=== PATIENT | female | born 1975 | race Hispanic/Latino ===

== ENCOUNTER 2019-07-28 12:02 | Emergency (ER) | payer BC ==
[~2019-07-28] VITALS: Ht 162.6 cm; Wt 49.9 kg
[~2019-07-28 12:02] MED LIST: ADVIL200 M1; TYLENOL EXTRA500 MG
--- OUTSIDE RECORDS SUMMARY | 2019-07-28 12:05 | XMS REPORT ---
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 Allergies, Adverse Reactions, Alerts Allergy Name Allergy Type Status Severity Reaction(s) Onset Date Inactive Date Treating Clinician Comments No Known Allergies DA Active U 2014-06-29 00:00:00 Medications This patient has no known medications. Results Test Description Test Time Test Comments Text Results Atomic Results Result Comments HCG BLOOD 2019-04-01 01:56:00 HCG BLOOD (test code=HCG) < 2.39 IU/L HCG in non- individuals < 5.0 IU/L (mIU/mL)HCG results greater than or equal to 25 IU/L are consideredPositive. Detection of very low levels of HCG does not excludepregnancy. Repeat testing after 48 hours is recommended. Gestational Age:1-10 weeks 44.71-256,740 IU/L(mIU/mL)11-15 weeks 11,556-256,380 IU/L(mIU/mL)16-22 weeks 7,480.8-111,954 IU/L(mIU/mL)23-40 weeks 1,531.1-101,556 IU/L(mIU/mL) This assay should not be used to diagnose any conditionunrelated to . - DUP AB/PEL/SC/FNU0045-06-07 01:55:00 [place]: St: REG Name: BIGG JACINTO Formerly [facility] : [birth year] Age/S: 43/F [address] Unit #: [id number] Loc: [place] [address] Phys: Belinda Boswell NP Acct: [id number] Dis Date: Status: REG ER PHONE #: [phone] Exam Date: 04/01/2019 0133 FAX #: [phone] Reason: SEE REASON ON US PREG 1ST TRMTR EXAMS: CPT CODE: [id number] DUP AB/PEL/SC/LTD 93413 DICTATION LOCATION: 8 HISTORY: Female, 43 years of age with pelvic pain and bleeding during 1st trimester . 8 weeks 5 days by dates. EXAM: TRANSAB DOMINAL AND TRANSVAGINAL PELVIC ULTRASOUNDS COMPARISON: None relev ant TECHNIQUE: Transabdominal and endovaginal scans with color and pulse wave Doppler interrogation were performed. FINDINGS: UTERUS: Normal size measuring 8.8 x 3.6 x 3.9 cm. No myometrial m asses are seen. Endometrium: 5.0 mm AP dimension. Endometrium is normal thickness and echogenicity. No intrauterine gestational sac or fetus is se en. RIGHT OVARY: 2.3 x 1.5 x 1.9 cm No discrete right ovari an mass. Ovarian blood flow documented with Doppler. LEFT OV THOMPSON: 2.0 x 1.6 x 2.6 cm No discrete left ovarian mass. Ovarian bloo d flow documented with Doppler. OTHER: No complex adnexal mass. N o free fluid in cul-de-sac. IMPRESSION: 1. No intrauter ine . No evidence for ectopic . Complete susp ected. Correlate with serial beta hCG levels. 2. Uterus and ovaries are normal. at 0155 Reported and signed by: Naomi Melara MD CC: Technologist: Tana Puga Date/Time/By: 04/01/2019 (0155) : By: Kavon PAGE 1 Signed Report [place]: [facility]: REG Name: DAVIDBIGG Formerly [facility] : 1975 Age/S: 43/F [address] Unit #: [id number] Loc: [place] [address] Phys: Belinda Boswell cct: [id number] Dis Date: Status: REG ER PHONE #: [phone] Exam Date: 04/01/2019 0133 FAX #: [phone] Reason: SEE REASON ON US PREG 1ST TRMTR EXAMS: CPT CODE: 0 [id number] DUP AB/PEL/SC/LTD 97414 < Continued> Orig Print D/T: S: 04/01/2019 (0158) PAGE 2 Signed Report - US PREG OR [id number] 01:55:00 [place]: [facility]: REG Name: Belinda WATKINSBIGG Formerly [facility] : [birth year] Age/S: 43/F [address] Unit #: [id number] Loc: [place] [address] Phys: Belinda Boswell NP Acct: [id number] Dis Date: Status: REG ER PHONE #: [phone] Exam Date: 04/01/2019 0133 FAX #: [phone] Reason: SEE REASON ON US PREG 1ST TRMTR EXAMS: CPT CODE: [id number] US PREG UT TRANSVAGINAL 73680 DICTATION LOCATION: H48 HISTORY: Female, 43 years of age with pelvic pain and bleeding during 1st trimester . 8 weeks 5 days by dates. EXAM: TRANSAB DOMINAL AND TRANSVAGINAL PELVIC ULTRASOUNDS COMPARISON: None relev ant TECHNIQUE: Transabdominal and endovaginal scans with color and pulse wave Doppler interrogation were performed. FINDINGS: UTERUS: Normal size measuring 8.8 x 3.6 x 3.9 cm. No myometrial m asses are seen. Endometrium: 5.0 mm AP dimension. Endometrium is normal thickness and echogenicity. No intrauterine gestational sac or fetus is se en. RIGHT OVARY: 2.3 x 1.5 x 1.9 cm No discrete right ovari an mass. Ovarian blood flow documented with Doppler. LEFT OV THOMPSON: 2.0 x 1.6 x 2.6 cm No discrete left ovarian mass. Ovarian bloo d flow documented with Doppler. OTHER: No complex adnexal mass. N o free fluid in cul-de-sac. IMPRESSION: 1. No intrauter ine . No evidence for ectopic . Complete susp ected. Correlate with serial beta hCG levels. 2. Uterus and ovaries are normal. at 0155 Reported and signed by: Naomi Melara MD CC: Technologist: Tana Puga; S#:[id number]-D Trnscrd Date/Time/By: 04/01/2019 (0155) : By: RoyceCLW PAGE 1 Signed Report [place]: St: REG Name: BIGG HERNANDEZ Formerly [facility] : 1975 Age/S: 43/F [address] Unit #: [id number] Loc: [place] [address] Phys: Belinda Boswell cct: [id number] Dis Date: Status: REG ER PHONE #: [phone] Exam Date: 04/01/2019 013 FAX #: [phone] Reason: SEE REASON ON US PREG 1ST TRMTR EXAMS: CPT CODE: 0 [id number] US PREG UT TRANSVAGINAL 74697 < Continued> Orig Print D/T: S: 04/01/2019 (0158) PAGE 2 Signed Report - US PREG 1ST [id number] 01:55:00 [place]: St: REG Name: BIGG JACINTO Formerly [facility] : [birth year] 72 Age/S: 43/F [address] Unit #: [id number] Loc: [place] [address] 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 8 weeks 5 days by dates. EXAM: TRANSAB DOMINAL AND TRANSVAGINAL PELVIC ULTRASOUNDS COMPARISON: None relev ant TECHNIQUE: Transabdominal and endovaginal scans with color and pulse wave Doppler interrogation were performed. FINDINGS: UTERUS: Normal size measuring 8.8 x 3.6 x 3.9 cm. No myometrial m asses are seen. Endometrium: 5.0 mm AP dimension. Endometrium is normal thickness and echogenicity. No intrauterine gestational sac or fetus is se en. RIGHT OVARY: 2.3 x 1.5 x 1.9 cm No discrete right ovari an mass. Ovarian blood flow documented with Doppler. LEFT OV THOMPSON: 2.0 x 1.6 x 2.6 cm No discrete left ovarian mass. Ovarian bloo d flow documented with Doppler. OTHER: No complex adnexal mass. N o free fluid in cul-de-sac. IMPRESSION: 1. No intrauter ine . No evidence for ectopic . Complete susp ected. Correlate with serial beta hCG levels. 2. Uterus and ovaries are normal. at 0151 Reported and signed by: Naomi Melara MD CC: Technologist: Tana Puga Date/Time/By: 04/01/2019 (0155) : By: RoyceCLW PAGE 1 Signed Report [place]: St: REG Name: BIGG HERNANDEZ Formerly [facility] : 1975 Age/S: 43/F [address] Unit #: [id number] Loc: [place] [address] Phys: Belinda Boswell cct: [id number] Dis Date: Status: REG ER PHONE #: [phone] Exam Date: 04/01/2019 0133 FAX #: [phone] Reason: PELVIC PAIN EXAMS: CPT CODE: 0 [id number] US PREG 1ST TRIMTR 75662 < Continued> Orig Print D/T: S: 04/01/2019 (0158) PAGE 2 Signed Report BASIC METABOLIC [id number] 01:44:00* Test Item Value Reference Range Comments SODIUM (test code=NA) 139 mmol/L 137-145 POTASSIUM (test code=K) 3.4 mmol/L 3.4-5.0 CHLORIDE (test code=CL) 100 mmol/L 98-107 CARBON DIOXIDE (test code=CO2) 28 mmol/L 22-30 GLUCOSE (test code=GLU) 103 mg/dL 74-106 BLOOD UREA NITROGEN (test code=BUN) 12 mg/dL 7-17 GLOMERULAR FILTRATION RATE (test code=GFR) 115 >60 The estimated glomerular filtration rate is computed usingpatient race, age (>18), sex, and serum creatinine. If anyof the needed data elements are missing the Laboratory cannot compute an estimation of the glomerular filtration rate. CREATININE (test code=CREAT) 0.6 mg/dL 0.5-1.0 CALCIUM (test code=CA) 8.2 mg/dL 8.4-10.2 LIVER FUNCTION [id number] 01:44:00* Test Item Value Reference Range Comments TOTAL PROTEIN (test code=PROT) 7.1 g/dL 6.3-8.2 ALBUMIN (test code=ALB) 4.1 g/dL 3.5-5.0 BILIRUBIN TOTAL (test code=BILT) 0.2 mg/dL 0.2-1.3 BILIRUBIN CONJUGATED (test code=BILCON) 0 mg/dL 0-0.3 ~~~~~~~~~~~~~~~~~~~~~~~~~~~~~~~~~~~~~~~~~~~~~~~~~~~~~~~~~~~~CONJUGATED BILIRUBIN IS THE REPLACEMENT ASSAY FOR DIRECTBILIRUBIN.~~~~~~~~~~~~~~~~~~~~~~~~~~~~~~~~~~~~~~~~~~~~~~~~~~~~~~~~~~~~ BILIRUBIN UNCONJUGATED (test code=BILUNC) 0.1 mg/dL 0-1.1 SGOT/AST (test code=AST) 45 U/L 15-46 SGPT/ALT (test code=ALT) 34 U/L 13-69 ALKALINE PHOSPHATASE (test code=ALKP) 108 U/L 38-126 CBC W/AUTO [id number] 01:06:00* Test Item Value Reference Range Comments WHITE BLOOD CELL (test code=WBC) 7.5 x10 3/uL 5.0-12.0 RED BLOOD CELL (test code=RBC) 4.92 x10 6/uL 4.20-5.40 HEMOGLOBIN (test code=HGB) 14.2 g/dL 12.0-16.0 HEMATOCRIT (test code=HCT) 44.0 % 36.0-46.0 MEAN CELL VOLUME (test code=MCV) 89 fL 81-99 MEAN CELL HGB (test code=MCH) 28.9 pg 27-31 MEAN CELL HGB CONCENTRATION (test code=MCHC) 32.3 g/dL 33-37 RED CELL DISTRIBUTION WIDTH (test code=RDW) 13.3 % 11.5-15.5 PLATELET COUNT (test code=PLT) 305 x10 3/uL 130-400 MEAN PLATELET VOLUME (test code=MPV) 9.9 fL 9.4-16.4 NEUTROPHIL % (test code=NT%) 55.7 % 43-65 IMMATURE GRANULOCYTE % (test code=IG%) 0.5 % 0.0-2.0 LYMPHOCYTE % (test code=LY%) 33.0 % 20.5-45.5 MONOCYTE % (test code=MO%) 7.2 % 5.5-11.7 EOSINOPHIL % (test code=EO%) 2.7 % 0.9-2.9 BASOPHIL % (test code=BA%) 0.9 % 0.2-1.0 NUCLEATED RBC % (test code=NRBC%) 0.0 % 0-1.0 NEUTROPHIL # (test code=NT#) 4.18 x10 3/uL 2.2-4.8 IMMATURE GRANULOCYTE # (test code=IG#) 0.04 x10 3/uL 0-0.03 LYMPHOCYTE # (test code=LY#) 2.48 x10 3/uL 1.3-2.9 MONOCYTE # (test code=MO#) 0.54 x10 3/uL 0.3-0.8 EOSINOPHIL # (test code=EO#) 0.20 x10 3/uL 0.0-0.2 BASOPHIL # (test code=BA#) 0.07 x10 3/uL 0.0-0.1
== END 2019-07-28 12:58 | disposition home or self-care (01) ==
LOC: FSED 12:02
DX: R50.9 Fever, unspecified (principal); R05 Cough; J20.9 Acute bronchitis, unspecified
CPT/HCPCS: 83518; 87400; 99283

== ENCOUNTER 2019-12-14 00:25 | Emergency (ER) | payer SELFPAY ==
[~2019-12-14] VITALS: Ht 162.6 cm; Wt 58.5 kg
[2019-12-14 01:04] VITALS: BP 134/88
== END 2019-12-14 01:10 | disposition home or self-care (01) ==
LOC: ER 00:25
DX: N76.0 Acute vaginitis (principal)
CPT/HCPCS: 99283

== ENCOUNTER 2020-02-19 23:16 | Emergency (ER) | payer SELFPAY ==
[~2020-02-19] VITALS: Ht 162.6 cm; Wt 58.5 kg
[2020-02-19] MEDS ORDERED: ASPIRIN 81 MG CHEW TAB PO ONE (23:30)
--- NOTE | 2020-02-19 23:42 | Emergency Department Note ---
History of Present Illnes History of Present Illness Chief Complaint: Chest Pain History of Present Illness This is a 44 year old female presents to the ED for nonradiating epigas tric tightness. Denies SOB. States that although she drinks daily , she abruptly ceased alcohol this AM. Smalltalk Developer Required: No Onset (how long ago): day(s) (1) Radiation: non-radiation Severity: moderate Duration (how long): day(s) (1) Timing of current episode: constant Progression: unchanged Chronicity: new Context: recent illness, recent surgery, recent immobilization, recent travel, trauma/injury, new medications, hx of DVT/PE, non-compliance w/ medications, other Relieving factors: none Exacerbating factors: none Associated symptoms: chest pain Treatments prior to arrival: none Past Medical/Family History Physician Review I have reviewed the patient's past medical and family history. Any updates have been documented here. Past Medical History Recent Fever: No Clinical Suspicion of Infectio: No New/Unexplained Change in Ment: No Past Medical History: None Past Surgical History: Other Surgery: Social History Smoking Cessation: Current every day smoker Counseling Performed: Yes Alcohol Use: Daily Any Illegal Drug Use: Yes (amphetamine) Other Last Tetanus: UNKNOWN Review of Systems Review of Systems Constitutional: no symptoms EENTM: no symptoms Cardiovascular: chest pain Respiratory: no symptoms Gastrointestinal: no symptoms Genitourinary: no symptoms Musculoskeletal: no symptoms Neurological: no symptoms Psychological: no symptoms Endocrine: no symptoms Hematological/Lymphatic: no symptoms Review of other systems All other systems reviewed and negative. Physical Exam Related Data Allergies: Coded Allergies: No Known Allergies (Unverified , 11/03/12) Triage Vital Signs Vital Signs Date Time Temp Pulse Resp B/P (MAP) Pulse Ox O2 Delivery O2 Flow Rate FiO2 02/19/20 23:23 98.9 87 17 168/97 99 Vital signs reviewed: Yes Physical Exam CONSTITUTIONAL Constitutional: well-developed, well-nourished HENT HENT: normocephalic, atraumatic, oropharynx clear/moist, nose normal HENT L/R: left ext ear normal, right ext ear normal EYES Eyes: PERRL, conjunctivae normal NECK Neck: ROM normal PULMONARY Pulmonary: effort normal, breath sounds normal CARDIOVASCULAR Cardiovascular: regular rhythm, heart sounds normal, capillary refill normal, normal rate GASTROINTESTINAL Abdominal: soft, nontender, bowel sounds normal GENITOURINARY Genitourinary: exam deferred SKIN Skin: warm, dry MUSCULOSKELETAL Musculoskeletal: ROM normal NEUROLOGICAL Neurological: alert, oriented x 3, no gross motor or sensory deficits PSYCHOLOGICAL Psychological: mood/affect normal, judgement normal Results Laboratory Laboratory Laboratory Tests Test 02/19/20 23:21 White Blood Count 6.47 x10e3/uL (4.8-10.8) Red Blood Count 4.41 x10e6/uL (3.6-5.1) Hemoglobin 13.4 g/dL (12.0-16.0) Hematocrit 41.0 % (34.2-44.1) Mean Corpuscular Volume 93.0 fL (81-99) Mean Corpuscular Hemoglobin 30.4 pg (28-32) Mean Corpuscular Hemoglobin Concent 32.7 g/dL (31-35) Red Cell Distribution Width 12.8 % (11.7-14.4) Platelet Count 306 x10e3/uL (140-360) Neutrophils (%) (Auto) 62.7 % (38.7-80.0) Lymphocytes (%) (Auto) 25.7 % (18.0-39.1) Monocytes (%) (Auto) 6.5 % (4.4-11.3) Eosinophils (%) (Auto) 3.2 % (0.0-6.0) Basophils (%) (Auto) 1.1 % (0.0-1.0) Neutrophils # (Auto) 4.1 (2.1-6.9) Lymphocytes # (Auto) 1.7 (1.0-3.2) Monocytes # (Auto) 0.4 (0.2-0.8) Eosinophils # (Auto) 0.2 (0.0-0.4) Basophils # (Auto) 0.1 (0.0-0.1) Absolute Immature Granulocyte (auto 0.05 x10e3/uL (0-0.1) D-Dimer Quantitative (PE/DVT) 0.50 ug/mLFEU (0.00-0.45) Urine Color Yellow (YELLOW) Urine Clarity Clear (CLEAR) Urine pH 7.5 (5 - 7) Urine Specific [place] 1.020 (1.010-1.025) Urine Protein Negative (NEGATIVE) Urine Glucose (UA) Negative (NEGATIVE) Urine Ketones Negative (NEGATIVE) Urine Blood 1+ (NEGATIVE) Urine Nitrite Negative (NEGATIVE) Urine Bilirubin Negative (NEGATIVE) Urine Urobilinogen 0.2 mg/dL (0.2 - 1) Urine Leukocyte Esterase Negative (NEGATIVE) Urine RBC 0-5 /HPF (0-5) Urine WBC 6-10 /HPF (0-5) Urine Epithelial Cells Few /LPF (NONE) Urine Bacteria Few /HPF (NONE) Urine Test Negative (NEGATIVE) Sodium Level 138 mmol/L (136-145) Potassium Level 3.5 mmol/L (3.5-5.1) Chloride Level 103 mmol/L (98-107) Carbon Dioxide Level 24 mmol/L (22-29) Anion Gap 14.5 mmol/L (8-16) Blood Urea Nitrogen 7 mg/dL (7-26) Creatinine 0.68 mg/dL (0.57-1.11) Estimat Glomerular Filtration Rate > 60 ML/MIN (60-) BUN/Creatinine Ratio 10 (6-25) Glucose Level 89 mg/dL (74-118) Calcium Level 8.9 mg/dL (8.4-10.2) Total Bilirubin 0.3 mg/dL (0.2-1.2) Aspartate Amino Transf (AST/SGOT) 101 IU/L (5-34) Alanine Aminotransferase (ALT/SGPT) 107 IU/L (0-55) Alkaline Phosphatase 107 IU/L (40-150) Creatine Kinase 95 IU/L (29-168) Creatine Kinase MB 1.20 ng/mL (0-5.0) Troponin I < 0.001 ng/mL (0-0.300) B-Type Natriuretic Peptide 42.5 pg/mL (0-100) Total Protein 8.1 g/dL (6.5-8.1) Albumin 3.8 g/dL (3.5-5.0) Globulin 4.3 g/dL (2.3-3.5) Albumin/Globulin Ratio 0.9 (0.8-2.0) Urine Opiates Screen Negative (NEGATIVE) Urine Methadone Screen Negative (NEGATIVE) Urine Barbiturates Screen Negative (NEGATIVE) Urine Phencyclidine Screen Negative (NEGATIVE) Urine Amphetamines Screen Negative (NEGATIVE) Urine Methamphetamines Screen Positive (NEGATIVE) Urine Benzodiazepines Screen Negative (NEGATIVE) Urine Cocaine Screen Negative (NEGATIVE) Urine Cannabinoids Screen Negative (NEGATIVE) Lab results reviewed: Yes Imaging Imaging results reviewed: Yes Impressions [facility] [address] [address] Patient Name: BIGG HERNANDEZ MR #: [id number] : 1975 Age/Sex: 44/F Req #: [id number] Adm Physician: Ordered by: MICHAEL OVERTON DO Report #: [id number] Location: ER Room/Bed: Procedure: [id number] CT/CT CHEST W Exam Date: 02/20/20 Exam Time: 0130 REPORT STATUS: Signed EXAM: CT Chest WITH contrast- Pulmonary Embolism Protocol INDICATION: Elevated D dimer. COMPARISON: Chest radiograph 02-20-2020. TECHNIQUE: Chest was scanned utilizing a multidetector helical scanner from the lung apex through the level of the diaphragm after administration of IV contrast. Thin section reconstructions were obtained with special concentration on the pulmonary arteries. Coronal and sagittal reformations were obtained. Pulmonary embolism protocol was performed. IV CONTRAST: 100 cc of Isovue 370 RADIATION DOSE: Total DLP: 428 mGy*cm Dose modulation, iterative reconstruction, and/or weight based adjustment of the mA/kV was utilized to reduce the radiation dose to as low as reasonably achievable. COMPLICATIONS: None FINDINGS: LINES/ TUBES: None. PULMONARY ARTERIES: No filling defect is identified within the pulmonary arteries to the segmental level. The subsegmental pulmonary arteries are not well opacified. Main pulmonary artery measures 2.1 cm in diameter. LUNGS AND AIRWAYS: The central airways are patent. No evidence of pneumonia or pulmonary edema. Minimal dependent atelectasis. Biapical pleural-parenchymal opacity, compatible with sequela of remote granulomatous disease. There is a 4 mm solid nodule in the lingula on series 3, image 75. There is a 6 mm subpleural nodular opacity in the right upper lobe on series 3, image 18. PLEURA: The pleural spaces are clear. HEART AND MEDIASTINUM: The thyroid gland is normal. No mediastinal, hilar or axillary lymphadenopathy. The heart is normal in size.. There is no pericardial effusion. . UPPER ABDOMEN: Limited contrast-enhanced views of the upper abdomen. Diffuse hepatic steatosis. BONES: The visualized bony thorax is within normal limits. SOFT TISSUES: Unremarkable. IMPRESSION: No evidence of pulmonary embolism to the level of the segmental pulmonary arteries. Biapical pleural-parenchymal opacity, compatible with remote granulomatous disease. A 6 mm subpleural nodular opacity in the right upper lobe likely reflects sequela of remote granulomatous disease. A follow-up chest CT is suggested in 6-12 months. Signed by: Dr. Ramez García MD on 02/20/2020 2:20 AM Dictated By: RAMEZ GARCÍA MD 9 Transcribed By: RASHMI on 02/20/20219 COPY TO: MICHAEL OVERTON DO~ [address] [place] [address] Patient Name: BIGG HERNANDEZ MR #: [id number] : 1975 Age/Sex: 44/F Req #: [id number] Adm Physician: Ordered by: MICHAEL OVERTON DO Report #: [id number] Location: ER Room/Bed: Procedure: [id number] DX/CHEST 2 VIEWS Exam Date: 02/20/20 Exam Time: 9 REPORT STATUS: Signed EXAMINATION: CHEST 2 VIEWS INDICATION: Heart palpitations. COMPARISON: None FINDINGS: TUBES and LINES: None. LUNGS: Lungs are well inflated. There is no evidence of pneumonia or pulmonary edema. Mild biapical pleural-parenchymal opacity, compatible with remote granulomatous disease. PLEURA: No pleural effusion or pneumothorax. HEART AND MEDIASTINUM: The cardiomediastinal silhouette is unremarkable. BONES AND SOFT TISSUES: No acute osseous lesion. Soft tissues are unremarkable. UPPER ABDOMEN: No free air under the diaphragm. IMPRESSION: No acute thoracic abnormality. Signed by: Dr. Ramez García MD on 02/20/2020 12:45 AM Dictated By: RAMEZ GRACÍA MD Transcribed By: RASHMI on 02/20/2044 COPY TO: MICHAEL OVERTON DO~ Procedures 12 Lead ECG Interpretation Smalltalk Developer: Interpreted by ED physician Date: February 19, 2020 Time: 23:42 Prior FLY FISHING GUIDE tracings: reviewed Rhythm: sinus rhythm Rate: normal BPM: 83 QRS axis: normal ST segments normal: Yes T wave depression: V1, V2 Clinical Impression: normal ECG Assessment & Plan Assessment & Plan Final Impression: (1) Chest pain (2) Alcohol abuse (3) Amphetamine abuse Assessment & Plan patient discharged to home. Rx Serax for alcohol and methamphetamine withdrawal. Patient to f/u with Dr Luann Chahal as an outpatient. Depart Disposition: HOME, SELF-shelter Meds No Active Prescriptions or Reported Meds Medications in the ED Aspirin 81 mg PRN ONCE PO ; Start 02/19/20 at 23:30; Stop 02/19/20 at 23:31; Status DC MICHAEL OVERTON DO February 19, 2020 23:24
[2020-02-20 00:05] LABS: BASOPHILS # (AUTO) 0.1 (0.0-0.1); BASOPHILS % 1.1 % (0.0-1.0); EOSINOPHILS # (AUTO) 0.2 (0.0-0.4); EOSINOPHILS % 3.2 % (0.0-6.0); HEMOGLOBIN 13.4 g/dL (12.0-16.0); LYMPHOCYTES # (AUTO) 1.7 (1.0-3.2); LYMPHOCYTES % 25.7 % (18.0-39.1); MEAN CORPUSCULAR HEMOGLOBIN 30.4 pg (28-32); MEAN CORPUSCULAR HGB CONC 32.7 g/dL (31-35); MONOCYTES # (AUTO) 0.4 (0.2-0.8); MONOCYTES % 6.5 % (4.4-11.3); NEUTROPHILS # (AUTO) 4.1 (2.1-6.9); NEUTROPHILS % 62.7 % (38.7-80.0); PLATELET COUNT 306 x10e3/uL (140-360); RED BLOOD COUNT 4.41 x10e6/uL (3.6-5.1); RED CELL DISTRIBUTION WIDTH 12.8 % (11.7-14.4)
[2020-02-20 00:20] LABS: AMPHETAMINES SCREEN,URINE NEGATIVE (NEGATIVE); BENZODIAZEPINES SCREEN,URINE NEGATIVE (NEGATIVE); PHENCYCLIDINE SCREEN,URINE NEGATIVE (NEGATIVE)
[2020-02-20 00:22] LABS: ALANINE AMINOTRANSFERASE 107 IU/L (0-55); ALBUMIN 3.8 g/dL (3.5-5.0); ALBUMIN/GLOBULIN RATIO 0.9 (0.8-2.0); ALKALINE PHOSPHATASE 107 IU/L (40-150); ANION GAP 14.5 mmol/L (8-16); BLOOD UREA NITROGEN 7 mg/dL (7-26); BUN/CREATININE RATIO 10 (6-25); CALCIUM 8.9 mg/dL (8.4-10.2); CARBON DIOXIDE 24 mmol/L (22-29); CHLORIDE 103 mmol/L (98-107); CREATINE KINASE 95 IU/L (29-168); CREATININE, SERUM 0.68 mg/dL (0.57-1.11); EST GLOMERULAR FILTRATION RATE > 60 ML/MIN (60-); POTASSIUM 3.5 mmol/L (3.5-5.1); SODIUM 138 mmol/L (136-145)
[2020-02-20 00:29] LABS: CLARITY,URINE CLEAR (CLEAR); COLOR,URINE YELLOW (YELLOW)
[2020-02-20 00:30] LABS: BILIRUBIN,URINE NEGATIVE (NEGATIVE); KETONES,URINE NEGATIVE (NEGATIVE); LEUKOCYTE ESTERASE ,URINE NEGATIVE (NEGATIVE); NITRITE,URINE NEGATIVE (NEGATIVE); PREGNANCY TEST, URINE NEGATIVE (NEGATIVE); PROTEIN,URINE DIPSTICK NEGATIVE (NEGATIVE); URINE UROBILINOGEN 0.2 mg/dL (0.2 - 1)
[2020-02-20 00:38] LABS: GLUCOSE 89 mg/dL (74-118)
--- NOTE | 2020-02-20 00:48 | Diagnostic Imaging Report ---
EXAMINATION: CHEST 2 VIEWS INDICATION: Heart palpitations. COMPARISON: None FINDINGS: TUBES and LINES: None. LUNGS: Lungs are well inflated. There is no evidence of pneumonia or pulmonary edema. Mild biapical pleural-parenchymal opacity, compatible with remote granulomatous disease. PLEURA: No pleural effusion or pneumothorax. HEART AND MEDIASTINUM: The cardiomediastinal silhouette is unremarkable. BONES AND SOFT TISSUES: No acute osseous lesion. Soft tissues are unremarkable. UPPER ABDOMEN: No free air under the diaphragm. IMPRESSION: No acute thoracic abnormality. Signed by: Dr. Lizabeth Ramirez MD on 02/20/2020 12:45 AM
[2020-02-20 01:02] LABS: BACTERIA,URINE FEW /HPF; EPITHELIAL CELLS,URINE FEW /LPF; RBC,URINE 0-5 /HPF (0-5)
--- NOTE | 2020-02-20 02:23 | Diagnostic Imaging Report ---
EXAM: CT Chest WITH contrast- Pulmonary Embolism Protocol INDICATION: Elevated D dimer. COMPARISON: Chest radiograph 02-20-2020. TECHNIQUE: Chest was scanned utilizing a multidetector helical scanner from the lung apex through the level of the diaphragm after administration of IV contrast. Thin section reconstructions were obtained with special concentration on the pulmonary arteries. Coronal and sagittal reformations were obtained. Pulmonary embolism protocol was performed. IV CONTRAST: 100 cc of Isovue 370 RADIATION DOSE: Total DLP: 428 mGy*cm Dose modulation, iterative reconstruction, and/or weight based adjustment of the mA/kV was utilized to reduce the radiation dose to as low as reasonably achievable. COMPLICATIONS: None FINDINGS: LINES/ TUBES: None. PULMONARY ARTERIES: No filling defect is identified within the pulmonary arteries to the segmental level. The subsegmental pulmonary arteries are not well opacified. Main pulmonary artery measures 2.1 cm in diameter. LUNGS AND AIRWAYS: The central airways are patent. No evidence of pneumonia or pulmonary edema. Minimal dependent atelectasis. Biapical pleural-parenchymal opacity, compatible with sequela of remote granulomatous disease. There is a 4 mm solid nodule in the lingula on series 3, image 75. There is a 6 mm subpleural nodular opacity in the right upper lobe on series 3, image 18. PLEURA: The pleural spaces are clear. HEART AND MEDIASTINUM: The thyroid gland is normal. No mediastinal, hilar or axillary lymphadenopathy. The heart is normal in size.. There is no pericardial effusion. . UPPER ABDOMEN: Limited contrast-enhanced views of the upper abdomen. Diffuse hepatic steatosis. BONES: The visualized bony thorax is within normal limits. SOFT TISSUES: Unremarkable. IMPRESSION: No evidence of pulmonary embolism to the level of the segmental pulmonary arteries. Biapical pleural-parenchymal opacity, compatible with remote granulomatous disease. A 6 mm subpleural nodular opacity in the right upper lobe likely reflects sequela of remote granulomatous disease. A follow-up chest CT is suggested in 6-12 months. Signed by: Dr. Lizabeth Ramirez MD on 02/20/2020 2:20 AM
[2020-02-20] MEDS ORDERED: ONDANSETRON HCL 4 MG ORAL DISINTEGRATING TAB PO STA (02:59)
[2020-02-20 03:04] VITALS: BP 137/71
[2020-02-20] MEDS ORDERED: ONDANSETRON HCL 4 MG ORAL DISINTEGRATING TAB ONE (03:13)
[2020-02-20] MEDS ORDERED: SODIUM CHLORIDE 0.9% 50ML 50 ML ONE (03:51)
[2020-02-20] MEDS ORDERED: IOPAMIDOL 370 MG/ML 200 ML INFUS..BTL INJ ONE (03:52)
--- OUTSIDE RECORDS SUMMARY | 2020-02-20 10:23 | XMS REPORT | Clinical Summary ---
Author Author JAMES 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 Active Problems Not on file Social History Date Tobacco Use Types Packs/Day Years Used Current Every Day Smoker Cigarettes 0.5 20 Tobacco Cessation: Ready to Quit: No; Co unseling Given: Yes Alcohol Use Drinks/Week oz/Week Comments No Sex Assigned at Date Recorded Not on file Industry Job Start Date Occupation Not on file Not on file Not on file Travel End Travel History Travel Start No recent travel history available. Last Filed Vital Signs Not on file Plan of Treatment Not on file Results Not on fileafter 02/18/2019 Insurance Payer Benefit Subscriber ID Type Phone Address Plan / Group MEDICAID - MEDICAID MGD MEDICAID xxxxxxxxx [employer] id CARE COMM Contracted HEALTH CHOICE
--- OUTSIDE RECORDS SUMMARY | 2020-02-20 10:23 | XMS REPORT | Summary of Care ---
Author Organization Unknown Address Unknown Phone Unavailable Encounter HQ Adelar_matias([facility]) [id number] Date(s): 10/17/14 - 10/17/14 [facility] Outpatient Imaging - [address] [address]- [place] Discharge Disposition: Home Physician Attending: Rao Cleary MD Reason for Visit 786.0 - DYSPNEA/RESPIRA Problem List No data available for this section Allergies, Adverse Reactions, Alerts Substance Reaction Severity Status NKDA Active Medications No data available for this section Medications Administered During Your Visit No data available for this section Immunizations No data available for this section
--- OUTSIDE RECORDS SUMMARY | 2020-02-20 10:23 | XMS REPORT | CCD ---
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 Phone Erick Liu CP Allergies, Adverse Reactions, Alerts Substance Reaction Status NKDA Active Medications Medication Instructions Start Date End Date Status predniSONE 20 mg 60 mg, 3 tab, PO, Daily, Take 3 05/24/2013 Ordered oral tablet tablets for 60 mg dose, 15 tab, Substitution Allowed Take 3 tablets for 60 mg dose Benadryl 25 mg, Route: PO, Drug form: CAP, 05/24/201305/24 Completed ONCE, Dosing Weight 45.455, kg, Priority: STAT, Start date: 05/24/13 2:40:00, Stop date: 05/24/13 2:40:00 dexamethasone 8 mg, Route: IM, ONCE, Dosing 05/24/2013 013 Completed Weight 45.455, kg, Priority: STAT, Start date: 05/24/13 2:39:00, Stop date: 05/24/13 2:39:00 Vital Signs Most recent to oldest [Reference Range]: 1 2 Height 162.56 cm (05/24/2013 00:28:00) Temperature Oral [96.4-99.1 DegF] 97.6 DegF (05/24/2013 03:21:00) 98.2 DegF (05/24/2013 00:28:00) Systolic Blood Pressure [90-140 mmHg] 121 mmHg (05/24/2013 03:21:00) 144 mmHg *HI* (05/24/2013 00:28:00) Diastolic Blood Pressure [60-90 mmHg] 84 mmHg (05/24/2013 03:21:00) 84 mmHg (05/24/2013 00:28:00) Respiratory Rate [14-20 BRMIN] 16 BRMIN (05/24/2013 03:21:00) 18 BRMIN (05/24/2013 00:28:00) Peripheral Pulse Rate [60-100 bpm] 80 bpm (05/24/2013 03:21:00) 80 bpm (05/24/2013 00:28:00) Weight 45.455 kg (05/24/2013 00:28:00)
--- OUTSIDE RECORDS SUMMARY | 2020-02-20 10:23 | XMS REPORT | Summary of Care ---
Author Author [facility] Outpatient Imaging - [facility] Organization [facility] Outpatient Imaging - [facility] Address Unknown Phone Unavailable Encounter HQ Encntr_alias(FIN) [id number] Date(s): 09/12/17 - 09/12/17 [facility] Outpatient Imaging - [place] [address] [place] [id number]- [phone] Discharge Disposition: Home or Self Care Attending Physician: Fab Alvarado MD Vital Signs No data available for this section Problem List No data available for this section Allergies, Adverse Reactions, Alerts Substance Reaction Severity Status NKDA Active Medications No data available for this section Results No data available for this section Immunizations No data available for this section Procedures No data available for this section Social History No data available for this section Assessment and Plan No data available for this section
--- OUTSIDE RECORDS SUMMARY | 2020-02-20 10:23 | XMS REPORT | Continuity of Care Document ---
Author Author [employer] Address Unknown Phone Unavailable Care Team Providers Care [place] Agent Name Role Phone [facility] [employer] Unavailable Un available Problems Problem Status Onset Date Classification Date Reported Comments Source M25.542 - PAIN IN JOINTS OF LEFT HAND Active 09/12/2017 [facility] [place] 786.0 - DYSPNEA/RESPIRA Active 10/17/2014 [facility] [place] BEE STING, SOB, DIFFUCULTY SWALLOWING Active 05/23/2013 [facility] Medications Medication Details Route Status Patient Instructions Ordering Provider Order Date Source predniSONE 20 mg oral tablet 6 0 mg, 3 tab, PO, Daily, Take 3 tablets for 60 mg dose, 15 tab, Substitution AllowedTake 3 tablets for 60 mg dose PO Active [facility] 05/03 [facility] Benadryl 25 mg, Route: PO, Dl g form: CAP, ONCE, Dosing Weight 45.455, kg, Priority: STAT, Start date: 05/24/13 2:40:00, Stop date: 05/24/13 2:40:00 PO No Longer Active [facility] 05/24/2013 [facility] dexamethasone 8 mg, Route: IM, ONCE, Dosing Weight 45.455, kg, Priority: STAT, Start date: 05/24/13 2:39:00, Stop date: 05/24/13 2:39:00 IM No Longer Active [facility] 05/24/2013 [facility] Allergies, Adverse Reactions, Alerts No Known Medication Allergies Immunizations No Data Provided for This Section Results No Data Provided for This Section Pathology Reports No Data Provided for This Section Diagnostic Reports Report Value Date Source Hand 3 views DX Exam: Left mccarty d x-ray, 3 views Reason for Exam: - m25.542 pain in joins of left hand Comparison Exam: None Discussion: No fractures or dislocations are seen of the left hand. The joint spaces are preserved. No intraosseous lesions. No radiopaque foreign bodies. Impression: 1. Unremarkable x-ray of the left hand 09/12/2017 [facility] Chest 2 views CHEST RADIOGRAPH Y CLINICAL HISTORY: Shortness of breath. COMPARISON IMAGIN02/10/2012 FINDINGS: Two views of the chest were acquired and submitted for evaluation. No pleural fluid is identified. The contour of the cardiac silhouette is within normal limits. There is no significant pulmonary consolidation or nodularity. Bones are unremarkable. IMPRESSION: No significant abnormality. 10/17/2014 [facility] Consultation Notes No Data Provided for This Section Discharge Summaries No Data Provided for This Section History and Physicals No Data Provided for This Section Vital Signs Vital Sign Value Date Comments Source Systolic (mm Hg) 121 05/24/2013 [facility] Diastolic (mm Hg) 84 05/24/2013 [facility] Heart Rate 80 05/24/2013 [facility] Respitory Rate 16 05/24/2013 [facility] Temperature Oral (F) 97.6 F 05/24/2013 [facility] Temperature Oral (F) 98.2 F 05/24/2013 [facility] Respitory Rate 18 05/24/2013 [facility] Systolic (mm Hg) 144 05/24/2013 [facility] Diastolic (mm Hg) 84 05/24/2013 [facility] Heart Rate 80 05/24/2013 [facility] Weight 45.455 05/24/2013 [facility] Height 162.56 cm 05/24/2013 [facility] Encounters Location Location Details Encounter Type Encounter Number Reason For Visit Attending Provider ADM Date DC Date Status Source Not Sent Em ergency [id number] BEE STING, SOB, D IFFUCULTY SWALLOWING MUKUL ALANIS 05/24/2013 05/24/2013 Active [facility] [place] [facility] [id number] Rao Busch Jr 10/17/2014 10/18/2014 [facility] [place] [facility] [id number] Fab Alvarado 09/12/2017 09/13/2017 [facility] Procedures No Data Provided for This Section Assessment and Plan No Data Provided for This Section Plan of Care No Data Provided for This Section Social History Social History Date Source No data available for this section 09/13/2017 [facility] Family History No Data Provided for This Section Advance Directives No Data Provided for This Section Functional Status No Data Provided for This Section
--- OUTSIDE RECORDS SUMMARY | 2020-02-20 10:24 | XMS REPORT ---
Author Author [facility] t Organization [facility] Address [address] [facility] [place] [address] Phone Unavailable Care Team Providers Care Assistance Specialist Name Role Phone NO, PCP PCP Unavailable MICHAEL OVERTON Attphys Unavailable Jake Alvarado Attphys Mihai Busch Jr Attphys Payers Payer Name Policy Type Policy Number Effective Date Expiration Date S elizabeth [facility] [id number] 2018 00:00:00 [facility] [id number] 2018 00:00:00 [facility] Advance Directives Directive Decision Effective Date Termination Date Comments Sour ce Yes N/A [facility] Problems Condition Name Condition Details Condition Category Status Onset Date Resolution Date Last Treatment Date Treating Clinician Comments Source M25.542 - PAIN IN JOINTS OF LEFT HAND M25.542 - PAIN IN JOINTS OF LEFT HAND Active 09/12/2017 [facility] [place] Diagnosis Active 2017-09-12 00:01:00 2017-09-12 15:04:00 M H [facility] [place] 786.0 - DYSPNEA/RESPIRA 786. 0 - DYSPNEA/RESPIRA Active 10/17/2014 [facility] [place] Diagnosis Active 2014-10-17 00:01:00 2014-11-18 14:09:00 [facility] [place] BEE STING, SOB, DIFFUCULTY SWALLOWING BEE STING, SOB, DIFFUCULTY SWALLOWING Active 05/23/2013 [facility] Diagnosis Ac tive 2013-05-23 17:00:00 2013-05-27 11:07:00 [facility] Chest pain Problem [facility] Amphetamine abuse Problem [facility] Allergies, Adverse Reactions, Alerts Allergy Name Allergy Type Status Severity Reaction(s) Onset Date Inacti ve Date Treating Clinician Comments Source No Known Allergies DA Active U 2014-06-29 00:00:00 [facility] Social History Social Habit Start Date Stop Date Quantity Comments Source Social History 2017-09-13 05:59:00 2017-09-13 05:59:00 [facility] Sex Assigned At 1975 00:00:00 1975 00:00:00 Female [facility] Medications Ordered Medication Name Filled Medication Name Start Date Stop Da te Current Medication? Ordering Clinician Indication Dosage Frequency Signature (SIG) Comments Components Source predniSONE 20 mg oral tablet 2013-05-24 08:23:48 Y es Nila Monet LaHaye 60 mg, 3 tab, PO, Da ariela, Take 3 tablets for 60 mg dose, 15 tab, Substitution AllowedTake 3 tablets for 60 mg dose [facility] Benadryl 2013-05-24 07:40:00 No Nila Monet LaHaye 25 mg, Route: PO, Drug form: CAP, ONCE, Dosing Weight 45.455, kg, Priority: STAT, Start date: 05/24/13 2:40:00, Stop date: 05/24/13 2:40:00 [facility] dexamethasone 2013-05-24 07:39:00 Marion Aguirre ayelvira 8 mg, Route: IM, ONCE, Dosing Weight 45.455, kg, Priority: STAT, Start date: 05/24/13 2:39:00, Stop date: 05/24/13 2:39:00 [facility] Vital Signs Vital Name Observation Time Observation Value Comments Source Body Temperature 2020-02-20 03:04:00 97.6 [degF] [facility] Weight 2020-02-19 23:23:00 129 [lb_av] [facility] BMI (Body Mass Index) 2020-02-19 23:23:00 22.1 kg/m2 [facility] Systolic (mm Hg) 2013-05-24 08:21:00 [facility] Diastolic (mm Hg) 2013-05-24 08:21:00 [facility] Heart Rate 2013-05-24 08:21:00 [facility] Respitory Rate 2013-05-24 08:21:00 [facility]ast Temperature Oral (F) 2013-05-24 08:21:00 97.6 F [facility] Temperature Oral (F) 2013-05-24 05:28:00 98.2 F [facility] Respitory Rate 2013-05-24 05:28:00 [facility]ast Systolic (mm Hg) 2013-05-24 05:28:00 [facility] Diastolic (mm Hg) 2013-05-24 05:28:00 [facility] Heart Rate 2013-05-24 05:28:00 [facility] Weight 2013-05-24 05:28:00 [facility] Height 2013-05-24 05:28:00 162.56 cm [facility] Procedures Procedure Date / Time Performed Performing Clinician [facility] e X-ray of chest, two views 2020-02-20 00:00:00 CH I [facility] Computed tomography of chest with contrast 2020-02-20 00:00:00 [facility] Plan of Care Planned Activity Planned Date Details Comments Source Goal Patient referral [code = 2759621 ] [facility] Instructions Alcohol Withdrawal [facility] Instructions Chest Pain - Noncardiac [facility] Instructions Methamphetamine Abuse [facility] Encounters Start Date/Time End Date/Time Encounter Type Admission Type [facility] Care Department Encounter ID Source 2020-02-19 23:16:00 2020-02-20 03:08:00 Departed Emergency Room 1 TIANMICHAEL [facility] [id number] [facility] 2019-12-14 00:25:00 2019-12-14 01:10:00 Departed Emergency Room [facility] [id number] [facility] Patients [facility] 2019-07-28 12:02:00 2019-07-28 12:58:00 Departed Emergency Room [facility] [id number] [facility] 2017-09-12 20:22:00 2017-09-13 05:59:00 Outpt Diag Services [facility] [place] [id number] [facility] [place] 2017-09-12 14:22:00 2017-09-12 23:59:00 Outpatient Denise Alvarado [facility] [id number] 2014-10-17 20:09:00 2014-10-18 05:59:00 Outpt Diag Services [facility] [place] [id number] [facility] [place] 2014-10-17 14:09:00 2014-10-17 23:59:00 Outpatient Rao Mi [facility] [id number] 2013-05-24 00:10:00 2013-05-24 03:58:00 Emergency [facility] T Not Sent [id number] [place] Results Test Description Test Time Test Comments Results Result Comments Source CT CHEST W 2020-02-20 02:07:00 [place] [address] Patient Name: BIGG HERNANDEZ MR #: [id number] : 1975 Age/Sex: 44/F Req #: [id number] Adm Physician: Ordered by: MICHAEL OVERTON DO Report #: [id number] Location: ER Room/Bed: Procedure: [id number] CT/CT CHEST W Exam Date: 02/20/20 Exam Time: 0130 REPORT STATUS: Signed EXAM: CT Chest WITH contrast- Pulmonary Embolism Protocol INDICATION: Elevated D dimer. COMPARISON: Chest radiograph 02-20-2020. TECHNIQUE: Chest was scanned utilizing a multidetector helical scanner from the lung apex through the level of the diaphragm after administration of IV contrast. Thin section reconstructions were obtained with special concentration on the pulmonary arteries. Coronal and sagittal reformations were obtained. Pulmonary embolism protocol was performed. IV CONTRAST: 100 cc of Isovue 370 RADIATION DOSE: Total DLP: 428 mGy*cm Dose modulation, iterative reconstruction, and/or weight based adjustment of the mA/kV was utilized to reduce the radiation dose to as low as reasonably achievable. COMPLICATIONS: None FINDINGS: LINES/ TUBES: None. PULMONARY ARTERIES: No filling defect is identified within the pulmonary arteries to the segmental level. The subsegmental pulmonary arteries are not well opacified. Main pulmonary artery measures 2.1 cm in diameter. LUNGS AND AIRWAYS: The central airways are patent. No evidence of pneumonia or pulmonary edema. Minimal dependent atelectasis. Biapical pleural-parenchymal opacity, compatible with sequela of remote granulomatous disease. There is a 4 mm solid nodule in the lingula on series 3, image 75. There is a 6 mm subpleural nodular opacity in the right upper lobe on series 3, image 18. PLEURA: The pleural spaces are clear. HEART AND MEDIASTINUM: The thyroid gland is normal. No mediastinal, hilar or axillary lymphadenopathy. The heart is normal in size.. There is no pericardial effusion. . UPPER ABDOMEN: Limited contrast-enhanced views of the upper abdomen. Diffuse hepatic steatosis. BONES: The visualized bony thorax is within normal limits. SOFT TISSUES: Unremarkable. IMPRESSION: No evidence of pulmonary embolism to the level of the segmental pulmonary arteries. Biapical pleural-parenchymal opacity, compatible with remote granulomatous disease. A 6 mm subpleural nodular opacity in the right upper lobe likely reflects sequela of remote granulomatous disease. A follow- up chest CT is suggested in 6-12 months. Signed by: Dr. Ramez García MD on 02/20/2020 2:20 AM Dictated By: RAMEZ GARCÍA MD 9 Transcribed By: RASHMI on 02/20/20219 COPY TO: MICHAEL OVERTON DO CHEST 2 VIEWS 2020-02-20 00:43:00 [place] [address] Patient Name: BIGG HERNANDEZ MR #: [id number] : 1975 Age/Sex: 44/F Req #: [id number] Adm Physician: Ordered by: MICHAEL OVERTON DO Report #: [id number] Location: ER Room/Bed: Procedure: [id number] DX/CHEST 2 VIEWS Exam Date: 02/20/20 Exam Time: 9 REPORT STATUS: Signed EXAMINATION: CHEST 2 VIEWS INDICATION: Heart palpitations. COMPARISON: None FINDINGS: TUBES and LINES: None. LUNGS: Lungs are well inflated. There is no evidence of pneumonia or pulmonary edema. Mild biapical pleural-parenchymal opacity, compatible with remote granulomatous disease. PLEURA: No pleural effusion or pneumothorax. HEART AND MEDIASTINUM: The cardiomediastinal silhouette is unremarkable. BONES AND SOFT TISSUES: No acute osseous lesion. Soft tissues are unremarkable. UPPER ABDOMEN: No free air under the diaphragm. IMPRESSION: No acute thoracic abnormality. Signed by: Dr. Ramez García MD on 02/20/2020 12:45 AM Dictated By: RAMEZ GARCÍA MD Transcribed By: RASHMI on 02/20/2044 COPY TO: MICHAEL OVERTON DO Blood leukocytes automated count (number/volume) 2020-02-19 23:21:00 Test Item White Blood Count (test code = 6690-2) 6.47 [facility] count (number/volume)2020-02-19 23:21:00* Test Item Value Reference Range Interpretation Comments Red Blood Count (test code = 789-8) 4.41 [facility] hemoglobin measurement (moles/volume)2020-02-19 23:21:00* Test Item Value Reference Range Interpretation Comments Hemoglobin (test code = 88711-9) 13.4 [facility] HospitalAutom[facility] blood hematocrit (volume fraction)2020-02-19 23:21:00* Test Item Value Reference Range Interpretation Comments Hematocrit (test code = 4544-3) 41.0 [facility] HospitalAutomated erythrocyte mean corpuscular omlswo7703-08-42 23:21:00* Test Item Value Reference Range Interpretation Comments Mean Corpuscular Volume (test code = 787-2) 93.0 [facility]Autom[facility] erythrocyte mean corpuscular hemoglobin (mass per erythrocyte)2020-02-19 23:21:00* Test Item Value Reference Range Interpretation Comments Mean Corpuscular Hemoglobin (test code = 785-6) 30.4 [facility] HospitalAutom[facility] erythrocyte mean corpuscular hemoglobin concentration measurement (mass/volume)2020-02-19 23:21:00* Test Item Value Reference Range Interpretation Comments Mean Corpuscular Hemoglobin Concent (test code = 786-4) 32.7 [facility] HospitalRDW IkrBl-Qfh3665-09-20 23:21:00* Test Item Value Reference Range Interpretation Comments Red Cell Distribution Width (test code = 59387-3) 12.8 [facility] HospitalAutom[facility] blood platelet count (count/volume)2020-02-19 23:21:00* Test Item Value Reference Range Interpretation Comments Platelet Count (test code = 777-3) 306 [facility] HospitalAutomated blood segmented neutrophil count as percentage of total swjegstbao5922-94-54 23:21:00* Test Item Value Reference Range Interpretation Comments Neutrophils (%) (Auto) (test code = 49287-9) 62.7 [facility] HospitalAutom[facility] blood lymphocyte count as percentage ot total bsghpywqxq5720-91-42 23:21:00* Test Item Value Reference Range Interpretation Comments Lymphocytes (%) (Auto) (test code = 736-9) 25.7 [facility] HospitalAutomated blood monocyte count as percentage of total htghmuzavk8950-69-89 23:21:00* Test Item Value Reference Range Interpretation Comments Monocytes (%) (Auto) (test code = 5905-5) 6.5 [facility] HospitalAutom[facility] blood eosinophil count as percentage of total sxcynemqxt6651-44-43 23:21:00* Test Item Value Reference Range Interpretation Comments Eosinophils (%) (Auto) (test code = 713-8) 3.2 [facility] HospitalAutomated blood basophil count as percentage of total akuspwmgwo2767-37-65 23:21:00* Test Item Value Reference Range Interpretation Comments Basophils (%) (Auto) (test code = 706-2) 1.1 [facility] HospitalFluoroscopic procedure less than one hour pmhybfnr7985-06-78 23:21:00* Test Item Value Reference Range Interpretation Comments IM GRANULOCYTES % (test code = IM GRANULOCYTES %) 0.8 [facility] HospitalAutomated blood neutrophil count 2020-02-19 23:21:00* Test Item Value Reference Range Interpretation Comments Neutrophils # (Auto) (test code = 751-8) 4.1 [facility] HospitalBlood lymphocytes count (number/volume) 2020-02-19 23:21:00* Test Item Value Reference Range Interpretation Comments Lymphocytes # (Auto) (test code = 92790-2) 1.7 [facility]Bl[facility] monocytes automated count (number/volume)2020-02-19 23:21:00* Test Item Value Reference Range Interpretation Comments Monocytes # (Auto) (test code = 742-7) 0.4 [facility] HospitalAutomated blood eosinophil count 2020-02-19 23:21:00* Test Item Value Reference Range Interpretation Comments Eosinophils # (Auto) (test code = 711-2) 0.2 [facility] HospitalAutomated blood basophil count (count/volume)2020-02-19 23:21:00* Test Item Value Reference Range Interpretation Comments Basophils # (Auto) (test code = 704-7) 0.1 [facility] HospitalFluoroscopic procedure less than one hour xdeovrnd5255-85-78 23:21:00* Test Item Value Reference Range Interpretation Comments Absolute Immature Granulocyte (auto (mirna t code = Absolute Immature Granulocyte (auto) 0.05 [facility] HospitalFibrin D-dimer DDU measurement in platelet poor plasma (mass/volume)2020-02-19 23:21:00* Test Item Value Reference Range Interpretation Comments D-Dimer Quantitative (PE/DVT) (test code = 22305-3) 0.50 [facility] HospitalUrine color xstdsuutensqj8795-97-37 23:21:00* Test Item Value Reference Range Interpretation Comments Urine Color (test code = 5778-6) YELLOW [facility] HospitalUrine fcewtan6849-03-70 23:21:00* Test Item Value Reference Range Interpretation Comments Urine Clarity (test code = 48113-8) CLEAR [facility] gravity of Urine by Test strip 2020-02-19 23:21:00* Test Item Value Reference Range Interpretation Comments Urine Specific [place] (test code = 5811-5) 1.020 [facility] HospitalUrine pH measurement by automated test fcsqc5379-06-24 23:21:00* Test Item Value Reference Range Interpretation Comments Urine pH (test code = 88140-9) 7.5 [facility] HospitalU[facility] leukocyte esterase detection by hlwgzcvo7414-21-72 23:21:00* Test Item Value Reference Range Interpretation Comments Urine Leukocyte Esterase (test code = 5799-2) NEGATIVE [facility] HospitalUrine nitrite cepxyydqw5197-00-31 23:21:00* Test Item Value Reference Range Interpretation Comments Urine Nitrite (test code = 59992-7) NEGATIVE [facility] HospitalUrine protein measurement by test strip (mass/volume)2020-02-19 23:21:00* Test Item Value Reference Range Interpretation Comments Urine Protein (test code = 5804-0) NEGATIVE [facility] HospitalUrine glucose vnnezaifo2533-88-94 23:21:00* Test Item Value Reference Range Interpretation Comments Urine Glucose (UA) (test code = 2349-9) NEGATIVE [facility] HospitalUrine ketones detection by automated test xdlcv4609-16-72 23:21:00* Test Item Value Reference Range Interpretation Comments Urine Ketones (test code = 67562-6) NEGATIVE [facility] HospitalUrine opiates screening bcxd9476-64-76 23:21:00* Test Item Value Reference Range Interpretation Comments Urine Opiates Screen (test code = 23627-1) NEGATIVE [facility] HospitalBarbiturates screen, bnfmm6896-87-55 23:21:00* Test Item Value Reference Range Interpretation Comments Urine Barbiturates Screen (test code = 469497547) NEGATIVE [facility] HospitalUrine phencyclidine detection by screening dogaho9267-44-55 23:21:00* Test Item Value Reference Range Interpretation Comments Urine Phencyclidine Screen (test code = 33502-1) NEGATIVE [facility] HospitalUrine amphetamines detection by screen method > 1000 ng/eH0341-51-93 23:21:00* Test Item Value Reference Range Interpretation Comments Urine Amphetamines Screen (test code = 08843-6) NEGATIVE [facility] HospitalFluoroscopic procedure less than one hour gxnbsyqa1958-83-28 23:21:00* Test Item Value Reference Range Interpretation Comments Urine Methamphetamines Screen (test code = Urine Metha mphetamines Screen) POSITIVE [facility] HospitalUrine benzodiazepines detection by screening bwctzf9833-88-60 23:21:00* Test Item Value Reference Range Interpretation Comments Urine Benzodiazepines Screen (test code = 10781-6) NEGATIVE [facility] HospitalUrine cocaine measurement (mass/volume) 2020-02-19 23:21:00* Test Item Value Reference Range Interpretation Comments Urine Cocaine Screen (test code = 3398-5) NEGATIVE [facility] HospitalUrine cannabinoids detection by screening ffsxyj3834-63-40 23:21:00* Test Item Value Reference Range Interpretation Comments Urine Cannabinoids Screen (test code = 19581-2) NEGATIVE [facility] HospitalUrine methadone qmvctx7574-64-02 23:21:00 * Test Item Value Reference Range Interpretation Comments Urine Methadone Screen (test code = 02704-0) NEGATIVE [facility] HospitalUrine urobilinogen measurement by test strip (mass/volume)2020-02-19 23:21:00* Test Item Value Reference Range Interpretation Comments Urine Urobilinogen (test code = 05747-4) 0.2 [facility] HospitalUrine total bilirubin measurement (mass/volume)2020-02-19 23:21:00* Test Item Value Reference Range Interpretation Comments Urine Bilirubin (test code = 1978-6) NEGATIVE [facility] HospitalUrine erythrocytes lcwrrawct9278-07-23 23:21:00* Test Item Value Reference Range Interpretation Comments Urine Blood (test code = 13829-4) 1+ [facility] HospitalAutomated urine sediment leukocyte count by microscopy (number/high power field)2020-02-19 23:21:00* Test Item Value Reference Range Interpretation Comments Urine WBC (test code = 5821-4) 6-10 [facility] HospitalErythrocytes detection in urine sediment by light wsjbrbrtai4117-09-27 23:21:00* Test Item Value Reference Range Interpretation Comments Urine RBC (test code = 27438-2) 0-5 [facility] HospitalBacteria detection in urine sediment by light bwqwvibzep7568-88-13 23:21:00* Test Item Value Reference Range Interpretation Comments Urine Bacteria (test code = 56477-6) FEW [facility] HospitalEpithelial cells detection in urine sediment by light gxcmjktofh1468-88-03 23:21:00* Test Item Value Reference Range Interpretation Comments Urine Epithelial Cells (test code = 72253-8) FEW [facility] HospitalUrine human chorionic gonadotropin (hCG) gxkrhlcak7366-04-97 23:21:00* Test Item Value Reference Range Interpretation Comments Urine Test (test code = 2106-3) NEGATIVE [facility] or plasma sodium measurement (moles/volume)2020-02-19 23:21:00* Test Item Value Reference Range Interpretation Comments Sodium Level (test code = 2951-2) 138 [facility] or plasma potassium measurement (moles/volume)2020-02-19 23:21:00* Test Item Value Reference Range Interpretation Comments Potassium Level (test code = 2823-3) 3.5 [facility] or plasma chloride measurement (moles/volume)2020-02-19 23:21:00* Test Item Value Reference Range Interpretation Comments Chloride Level (test code = 2075-0) 103 [facility]ererum or plasma carbon dioxide, total measurement (moles/volume)2020-02-19 23:21:00* Test Item Value Reference Range Interpretation Comments Carbon Dioxide Level (test code = 2028-9) 24 [facility]rum or plasma anion jjd2277-21-00 23:21:00* Test Item Value Reference Range Interpretation Comments Anion Gap (test code = 54520-0) 14.5 [facility]rum or plasma urea nitrogen measurement (mass/volume)2020-02-19 23:21:00* Test Item Value Reference Range Interpretation Comments Blood Urea Nitrogen (test code = 3094-0) 7 [facility]rum or plasma creatinine measurement (mass/volume)2020-02-19 23:21:00* Test Item Value Reference Range Interpretation Comments Creatinine (test code = 2160-0) 0.68 [facility]rum or plasma urea nitrogen/creatinine mass vhwlc6128-61-82 23:21:00* Test Item Value Reference Range Interpretation Comments BUN/Creatinine Ratio (test code = 3097-3) 10 [facility] HospitalEstimated glomerular filtration rate (GFR) jijuhdmnjvgun3872-45-15 23:21:00* Test Item Value Reference Range Interpretation Comments Estimat Glomerular Filtration Rate (test code = 621249449) > 60 [facility] HospitalGlucose udelydoadeh6845-08-66 23:21:00* Test Item Value Reference Range Interpretation Comments Glucose Level (test code = SZM9875) 89 [facility] Centererum or plasma calcium measurement (mass/volume)2020-02-19 23:21:00* Test Item Value Reference Range Interpretation Comments Calcium Level (test code = 42328-7) 8.9 [facility]rum or plasma total bilirubin measurement (mass/volume)2020-02-19 23:21:00* Test Item Value Reference Range Interpretation Comments Total Bilirubin (test code = 1975-2) 0.3 [facility] HospitalFluoroscopic procedure less than one hour lmjqcazn8061-39-58 23:21:00* Test Item Value Reference Range Interpretation Comments Aspartate Amino Transf (AST/SGOT) (test code = Aspartate Amino Transf (AST/SGOT)) 101 [facility] Cent[facility]rum or plasma alanine aminotransferase measurement (enzymatic activity/volume)2020-02-19 23:21:00* Test Item Value Reference Range Interpretation Comments Alanine Aminotransferase (ALT/SGPT) (test code = 1742-6) 107 [facility]rum or plasma protein measurement (mass/volume)2020-02-19 23:21:00* Test Item Value Reference Range Interpretation Comments Total Protein (test code = 2885-2) 8.1 [facility]ererum or plasma albumin measurement (mass/volume)2020-02-19 23:21:00* Test Item Value Reference Range Interpretation Comments Albumin (test code = 1751-7) 3.8 [facility] HospitalPlasma globulin measurement (mass/volume) 2020-02-19 23:21:00* Test Item Value Reference Range Interpretation Comments Globulin (test code = 33389-8) 4.3 [facility]rum or plasma albumin/globulin mass zbhze3519-72-61 23:21:00* Test Item Value Reference Range Interpretation Comments Albumin/Globulin Ratio (test code = 1759-0) 0.9 [facility] or plasma alkaline phosphatase measurement (enzymatic activity/volume)2020-02-19 23:21:00* Test Item Value Reference Range Interpretation Comments Alkaline Phosphatase (test code = 6768-6) 107 [facility] V[facility]-wUxd5353-57-20 23:21:00* Test Item Value Reference Range Interpretation Comments B-Type Natriuretic Peptide (test code = 90534-8) 42.5 [facility] or plasma creatine kinase measurement (enzymatic activity/volume)2020-02-19 23:21:00* Test Item Value Reference Range Interpretation Comments Creatine Kinase (test code = 2157-6) 95 [facility]rum or plasma creatine kinase MB measurement (mass/volume)2020-02-19 23:21:00* Test Item Value Reference Range Interpretation Comments Creatine Kinase MB (test code = 60746-9) 1.20 [facility] HospitalTroponin I measurement by highly sensitive enzyme [id number] 23:21:00* Test Item Value Reference Range Interpretation Comments Troponin I (test code = 72723-9) < 0.001 [facility] [id number] 01:56:00* Test Item Value Reference Range Interpretation Comments HCG BLOOD (test code = HCG) < 2.39 IU/L HCG in non- individuals [...] to diagnose any conditionunrelated to . - MICHI SANCHEZ/MONSE/LUKE/[id number] 01:55:00 [place]: St: REG Name: BIGG JACINTO [facility] : [birth year] Age/S: 43/F [address] Unit #: [id number] Loc: [place] [address] Phys: Belinda Boswell Luann Kong NP Acct: [id number] Dis Date: Status: REG ER PHONE #: [phone] Exam Date: 04/01/2019 0133 FAX #: [phone] Reason: SEE REASON ON US PREG 1ST TRMTR EXAMS: CPT CODE: [id number] DUP AB/PEL/SC/LTD 12913 DICTATION LOCATION: 8 HISTORY: Female, 43 years [...] Naomi Melara MD CC: Technologist: Tana Puga Trnscrd Date/Time/By: 04/01/2019 (0155) : By: RoyceCLW PAGE 1 Signed Report [place]: St: REG Name: BIGG HERNANDEZ [facility] : 1975 Age/S: 43/F [address] Unit #: [id number] Loc: [place] [address] Phys: Belinda Boswell cct: [id number] Dis Date: Status: REG ER PHONE #: [phone] Exam Date: 04/01/2019132 FAX #: [phone] Reason: SEE REASON ON US PREG 1ST TRMTR EXAMS: CPT CODE: 0 [id number] DUP AB/PEL/SC/LTD 32336 < Continued> Orig Print D/T: S: 04/01/2019 (0158) PAGE 2 Signed Report - US PREG UT [id number] 01:55:00 [place]: St: REG Name: BIGG JACINTO [facility] : [birth year] Age/S: 43/F [address] Unit #: [id number] Loc: [place] [address] Phys: Belinda Boswell MANAGER POWER Acct: [id number] Dis Date: Status: REG ER PHONE #: [phone] Exam Date: 04/01/2019132 FAX #: [phone] Reason: SEE REASON ON US PREG 1ST TRMTR EXAMS: CPT CODE: [id number] US PREG UT TRANSVAGINAL 23520 DICTATION LOCATION: H48 HISTORY: Female, 43 years [...] Naomi Melara MD CC: Technologist: Tana Puga; S#:[id number] Trnscrd Date/Time/By: 04/01/2019 (0155) : By: RoyceCL PAGE 1 Signed Report [place]: St: REG Name: BIGG HERNANDEZ [facility] : 1975 Age/S: 43/F [address] Unit #: [id number] Loc: [place] [address] Phys: Belinda Boswell cct: [id number] Dis Date: Status: REG ER PHONE #: [phone] Exam Date: 04/01/2019 0133 FAX #: [phone] Reason: SEE REASON ON US PREG 1ST TRMTR EXAMS: CPT CODE: 0 [id number] US PREG UT TRANSVAGINAL 68227 < Continued> Orig Print D/T: S: 04/01/2019 (0158) PAGE 2 Signed Report - US PREG 1ST [id number] 01:55:00 [place]: St: REG Name: BIGG JACINTO [facility] : [birth year] Age/S: 43/F [address] Unit #: [id number] Loc: [place] [address] Phys: Belinda Boswell NP Acct: [id number] Dis Date: Status: REG ER PHONE #: [phone] Exam Date: 04/01/2019 0133 FAX #: [phone] Reason: PELVIC PAIN EXAMS: CPT CODE: [id number] US PREG 1ST TRIMTR 35276 DICTATION LOCATION: 8 HISTORY: Female, 43 years [...] Naomi Melara MD CC: Technologist: Tana Puga Trnscrd Date/Time/By: 04/01/2019 (0155) : By: JoaquinaW PAGE 1 Signed Report [place]: St: REG Name: BIGG HERNANDEZ [facility] : 1975 Age/S: 43/F [address] Unit #: [id number] Loc: [place] [address] Phys: Belinda Boswell cct: [id number] Dis Date: Status: REG ER PHONE #: [phone] Exam Date: 04/01/2019132 FAX #: [phone] Reason: PELVIC PAIN EXAMS: CPT CODE: 0 [id number] US PREG 1ST TRIMTR 62842 < Continued> Orig Print D/T: S: 04/01/2019 (0150) PAGE 2 Signed Report BASIC METABOLIC [id number] 01:44:00* Test Item Value Reference Range Interpretation Comments SODIUM (test code = NA) 139 mmol/L 137-145 N POTASSIUM (test code = K) 3.4 mmol/L 3.4-5.0 N CHLORIDE (test code = CL) 100 mmol/L 98-107 N CARBON DIOXIDE (test code = CO2) 28 mmol/L 22-30 N GLUCOSE (test code = GLU) 103 mg/dL 74-106 N BLOOD UREA NITROGEN (test code = BUN) 12 mg/dL 7-17 N GLOMERULAR FILTRATION RATE (test code = GFR) 115 >60 The estimated glomerular filtration rate is computed usingpatient race, age (>18), sex, and serum creatinine. If anyof the needed data elements are missing the Laboratory cannot compute an estimation of the glomerular filtration rate. CREATININE (test code = CREAT) 0.6 mg/dL 0.5-1.0 N CALCIUM (test code = CA) 8.2 mg/dL 8.4-10.2 L LIVER FUNCTION [id number] 01:44:00* Test Item Value Reference Range Interpretation Comments TOTAL PROTEIN (test code = PROT) 7.1 g/dL 6.3-8.2 N ALBUMIN (test code = ALB) 4.1 g/dL 3.5-5.0 N BILIRUBIN TOTAL (test code = BILT) 0.2 mg/dL 0.2-1.3 N BILIRUBIN CONJUGATED (test code = BILCON) 0 mg/dL 0-0.3 N ~~~~~~~~~~~~~~~~~~~~~~~~~~~~~~~~~~~~~~~~~~~~~~~~~~~~~~~~~~~~CONJUGATED BILIRUBIN IS THE REPLACEMENT ASSAY FOR DIRECTBILIRUBIN.~~~~~~~~~~~~~~~~~~~~~~~~~~~~~~~~~~~~~~~~~~~~~~~~~~~~~~~~~~~~ BILIRUBIN UNCONJUGATED (test code = BILUNC) 0.1 mg/dL 0-1.1 N SGOT/AST (test code = AST) 45 U/L 15-46 N SGPT/ALT (test code = ALT) 34 U/L 13-69 N ALKALINE PHOSPHATASE (test code = ALKP) 108 U/L 38-126 N CBC W/AUTO [id number] 01:06:00* Test Item Value Reference Range Interpretation Comments WHITE BLOOD CELL (test code = WBC) 7.5 x10 3/uL 5.0-12.0 N RED BLOOD CELL (test code = RBC) 4.92 x10 6/uL 4.20-5.40 N HEMOGLOBIN (test code = HGB) 14.2 g/dL 12.0-16.0 N HEMATOCRIT (test code = HCT) 44.0 % 36.0-46.0 N MEAN CELL VOLUME (test code = MCV) 89 fL 81-99 N MEAN CELL HGB (test code = MCH) 28.9 pg 27-31 N MEAN CELL HGB CONCENTRATION (test code = MCHC) 32.3 g/dL 33-37 L RED CELL DISTRIBUTION WIDTH (test code = RDW) 13.3 % 11.5-15. 5 N PLATELET COUNT (test code = PLT) 305 x10 3/uL 130-400 N MEAN PLATELET VOLUME (test code = MPV) 9.9 fL 9.4-16.4 N NEUTROPHIL % (test code = NT%) 55.7 % 43-65 N IMMATURE GRANULOCYTE % (test code = IG%) 0.5 % 0.0-2.0 N LYMPHOCYTE % (test code = LY%) 33.0 % 20.5-45.5 N MONOCYTE % (test code = MO%) 7.2 % 5.5-11.7 N EOSINOPHIL % (test code = EO%) 2.7 % 0.9-2.9 N BASOPHIL % (test code = BA%) 0.9 % 0.2-1.0 N NUCLEATED RBC % (test code = NRBC%) 0.0 % 0-1.0 N NEUTROPHIL # (test code = NT#) 4.18 x10 3/uL 2.2-4.8 N IMMATURE GRANULOCYTE # (test code = IG#) 0.04 x10 3/uL 0-0.03 H LYMPHOCYTE # (test code = LY#) 2.48 x10 3/uL 1.3-2.9 N MONOCYTE # (test code = MO#) 0.54 x10 3/uL 0.3-0.8 N EOSINOPHIL # (test code = EO#) 0.20 x10 3/uL 0.0-0.2 N BASOPHIL # (test code = BA#) 0.07 x10 3/uL 0.0-0.1 N
== END 2020-02-20 03:08 | disposition home or self-care (01) ==
LOC: ER 23:16
DX: R10.13 Epigastric pain (principal); R07.89 Other chest pain; F10.10 Alcohol abuse, uncomplicated; F15.10 Other stimulant abuse, uncomplicated; F17.210 Nicotine dependence, cigarettes, uncomplicated
CPT/HCPCS: 36415; 71046; 71260; 80053; 80307; 81001; 81025; 82550; 82553; 83880; 84484; 85025; 85379; 99284; Q0162; Q9967

== ENCOUNTER 2020-07-15 17:01 | Emergency (ER) | payer SELFPAY ==
[~2020-07-15] VITALS: Ht 162.6 cm; Wt 58.5 kg
--- NOTE | 2020-07-15 17:29 | Emergency Department Note ---
History of Present Illnes History of Present Illness History of Present Illness This is a 44 year old female with 3 day h/o of rash on LLE . Onset (how long ago): day(s) (3) Past Medical/Family History Physician Review I have reviewed the patient's past medical and family history. Any updates have been documented here. Past Medical History Past Medical History: None Past Surgical History: Other Surgery: Other Last Tetanus: UNKNOWN Physical Exam Related Data Allergies: Coded Allergies: No Known Allergies (Unverified , 11/03/12) Physical Exam CONSTITUTIONAL HENT EYES NECK PULMONARY CARDIOVASCULAR GASTROINTESTINAL GENITOURINARY SKIN Skin: Present erythema, Present other (3 x 2 cm well circumscribed erythema LLE ) MUSCULOSKELETAL NEUROLOGICAL PSYCHOLOGICAL Assessment & Plan Assessment & Plan Final Impression: (1) Cellulitis of left lower leg Depart Disposition: HOME, SELF-alf Meds No Active Prescriptions or Reported Meds MICHAEL OVERTON DO Jul 15, 2020 17:29
--- OUTSIDE RECORDS SUMMARY | 2020-07-15 17:43 | XMS REPORT | Clinical Summary ---
Author Author JAMES 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
--- OUTSIDE RECORDS SUMMARY | 2020-07-15 17:43 | XMS REPORT | Continuity of Care Document ---
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 Name Role Phone [facility] [employer] Unavailable Un available Problems Problem Status Onset Date Classification Date Reported Comments Source M25.542 - PAIN IN JOINTS OF LEFT HAND Active 09/12/2017 DOMO Waller 786.0 - DYSPNEA/RESPIRA Active 10/17/2014 DOMO Waller BEE STING, SOB, DIFFUCULTY SWALLOWING Active 05/23/2013 [facility] Medications Medication Details Route Status Patient Instructions Ordering Provider Order Date Source predniSONE 20 mg oral tablet 6 0 mg, 3 tab, PO, Daily, Take 3 tablets for 60 mg dose, 15 tab, Substitution AllowedTake 3 tablets for 60 mg dose PO Active [facility] 05/03 [facility] Benadryl 25 mg, Route: PO, Dl g form: CAP, ONCE, Dosing Weight 45.455, kg, Priority: STAT, Start date: 05/24/13 2:40:00, Stop date: 05/24/13 2:40:00 PO No Longer Active [facility] 05/24/2013 [facility] dexamethasone 8 mg, Route: IM, ONCE, Dosing Weight 45.455, kg, Priority: STAT, Start date: 05/24/13 2:39:00, Stop date: 05/24/13 2:39:00 IM No Longer Active [facility] 05/24/2013 [facility] Allergies, Adverse Reactions, Alerts No Known [...] x-ray of the left hand 09/12/2017 [facility] [place] Chest 2 views CHEST RADIOGRAPH Y CLINICAL HISTORY: Shortness of breath. COMPARISON IMAGIN02/10/2012 FINDINGS: Two views of the chest were acquired and submitted for evaluation. No pleural fluid is identified. The contour of the cardiac silhouette is within normal limits. There is no significant pulmonary consolidation or nodularity. Bones are unremarkable. IMPRESSION: No significant abnormality. 10/17/2014 [facility] [place] Consultation Notes No Data Provided for This Section Discharge Summaries No Data Provided for This Section History and Physicals No Data Provided for This Section Vital Signs Vital Sign Value Date Comments Source Systolic (mm Hg) 121 05/24/2013 [facility] Diastolic (mm Hg) 84 05/24/2013 [facility] Heart Rate 80 05/24/2013 [facility] Respitory Rate 16 05/24/2013 [facility] Temperature Oral (F) 97.6 F 05/24/2013 [facility] Temperature Oral (F) 98.2 F 05/24/2013 [facility] Respitory Rate 18 05/24/2013 [facility] Systolic (mm Hg) 144 05/24/2013 [facility] Diastolic (mm Hg) 84 05/24/2013 [facility] Heart Rate 80 05/24/2013 [facility] Weight 45.455 05/24/2013 [facility] Height 162.56 cm 05/24/2013 [facility] Encounters Location Location Details Encounter Type Encounter Number Reason For Visit Attending Provider ADM Date DC Date Status Source Not Sent Em ergency [id number] BEE STING, SOB, D IFFUCULTY SWALLOWING MUKUL ALANIS 05/24/2013 05/24/2013 Active [facility] [place] [facility] [id number] Rao Busch Jr 10/17/2014 10/18/2014 [facility] [place] [facility] [place] [facility] [id number] 01 Fab Alvarado 09/12/2017 09/13/2017 [facility] [place] Procedures No Data Provided for This Section Assessment and Plan No Data Provided for This Section Plan of Care No Data Provided for This Section Social History Social History Date Source No data available for this section 09/13/2017 [facility] [place] Family History No Data Provided for This Section Advance Directives No Data Provided for This Section Functional Status No Data Provided for This Section
--- OUTSIDE RECORDS SUMMARY | 2020-07-15 17:43 | XMS REPORT | Continuity of Care Document ---
Author Author [facility] t Organization [facility] Address [address] [place] [address] Phone Unavailable Care Team Providers Care Director Technical Name Role Phone NO, PCP PCP Unavailable MICHAEL OVERTON Attphys Unavailable Jake Alvarado Attphys Mihai Busch Jr Attphys Payers Payer Name Policy Type Policy Number Effective Date Expiration Date [facility] [employer] [place] Ppo NA 2018 00:00:00 [facility] Problems Condition Name Condition Details Condition Category Status Onset Date Resolution Date Last Treatment Date Treating Clinician Comments Source M25.542 - PAIN IN JOINTS OF LEFT HAND M25.542 - PAIN IN JOINTS OF LEFT HAND Active 09/12/2017 [facility] [place] [facility] Active 2017-09-12 00:01:00 2017-09-12 15:04:00 Miroslava Ibanez 786.0 - DYSPNEA/RESPIRA 786. 0 - DYSPNEA/RESPIRA Active 10/17/2014 [facility] [place] Diagnosis Active 2014-10-17 00:01:00 2014-11-18 14:09:00 Jose Miguel Ibanez BEE STING, SOB, DIFFUCULTY SWALLOWING BEE STING, SOB, DIFFUCULTY SWALLOWING Active 05/23/2013 [facility] 2013-05-23 17:00:00 2013-05-27 11:07:00 M emani Ibanez Chest pain Problem Active [facility] Amphetamine abuse Problem Active [facility] Allergies, Adverse Reactions, Alerts Allergy Name Allergy Type Status Severity Reaction(s) Onset Date Inacti ve Date Treating Clinician Comments Source No Known Allergies DA Active U 2020-06-23 00:00:00 [facility] No Known Allergies DA Active U 2014-06-29 00:00:00 [facility] Social History Social Habit Start Date Stop Date Quantity Comments Source History of tobacco use Cigarette Smoker [facility] Sex Assigned At [facility] Social History 2017-09-13 05:59:00 2017-09-13 05:59:00 [facility] Cigarettes smoked current (pack per day) - Reported 00:00:00 2017-03-06 00:00:00 [facility] Cigarette pack-years 2017-03-06 00:00:00 2017-03-06 00:00:00 [facility] Alcohol intake 2017-03-06 00:00:00 2017-03-06 00:00:00 Current non-drinker of alcohol (finding) [facility] Smoking Status Start Date Stop Date Source Current every day smoker 2017-03-06 00:00:00 [facility] Medications Ordered Medication Name Filled Medication Name Start Date Stop Da te Current Medication? Ordering Clinician Indication Dosage Frequency Signature (SIG) Comments Components Source azithromycin (ZITHROMAX Z-NEWTON) 250 MG tablet 2017-03-06 00:00:00 Yes Take 2 tablets by mouth on the first day , then take 1 tablet by mouth for the next four days.. [facility] predniSONE 20 mg oral tablet 2013-05-24 08:23:48 Y es Nila Sim 60 mg, 3 tab, PO, Da ariela, Take 3 tablets for 60 mg dose, 15 tab, Substitution AllowedTake 3 tablets for 60 mg dose Mem ebony Ibanez Benadryl 2013-05-24 07:40:00 No Nila Monet LaHaye 25 mg, Route: PO, Drug form: CAP, ONCE, Dosing Weight 45.455, kg, Priority: STAT, Start date: 05/24/13 2:40:00, Stop date: 05/24/13 2:40:00 [facility] dexamethasone 2013-05-24 07:39:00 No Nila Monet Carla aye 8 mg, Route: IM, ONCE, Dosing Weight 45.455, kg, Priority: STAT, Start date: 05/24/13 2:39:00, Stop date: 05/24/13 2:39:00 [facility] Vital Signs Vital Name Observation Time Observation Value Comments Source Body Temperature 2020-02-20 03:04:00 97.6 [degF] [facility] Weight 2020-02-19 23:23:00 129 [lb_av] [facility] BMI (Body Mass Index) 2020-02-19 23:23:00 22.1 kg/m2 [facility] Systolic (mm Hg) 2013-05-24 08:21:00 [facility] Diastolic (mm Hg) 2013-05-24 08:21:00 [facility] Heart Rate 2013-05-24 08:21:00 [facility] Respitory Rate 2013-05-24 08:21:00 [facility] [place] Temperature Oral (F) 2013-05-24 08:21:00 97.6 F [facility] Temperature Oral (F) 2013-05-24 05:28:00 98.2 F [facility] [place] Respitory Rate 2013-05-24 05:28:00 [facility] [place] Systolic (mm Hg) 2013-05-24 05:28:00 Yung [facility] Diastolic (mm Hg) 2013-05-24 05:28:00 [facility] Heart Rate 2013-05-24 05:28:00 [facility] Weight 2013-05-24 05:28:00 [facility] [place] Height 2013-05-24 05:28:00 162.56 cm [facility] [place] Procedures Procedure Date / Time Performed Performing Clinician [facility] e X-ray of chest, two views 2020-02-20 00:00:00 [facility] Computed tomography of chest with contrast 2020-02-20 00:00:00 [facility] Plan of Care Planned Activity Planned Date Details Comments Source Instructions Alcohol Withdrawal [facility] Instructions Chest Pain - Noncardiac [facility] Instructions Methamphetamine Abuse [facility] Encounters Start Date/Time End Date/Time [facility]counter Type [facility] ID Source 2020-02-19 23:16:00 2020-02-20 03:08:00 Departed Emergency Room 1 MICHAEL OVERTON [facility] [id number] [facility] 2019-12-14 00:25:00 2019-12-14 01:10:00 Departed Emergency Room [facility] [id number] [facility] 2019-07-28 12:02:00 2019-07-28 12:58:00 Departed Emergency Room [facility] [id number] [facility] 2017-09-12 14:22:00 2017-09-12 23:59:[address] [facility] [id number] 2014-10-17 14:09:00 2014-10-17 23:59:00 Outpatient Rao Mi [facility] [id number] Results Test Description Test Time Test Comments Results Result Comments Source COMPREHENSIVE METABOLIC PANEL 2020-06-24 00:07:00 Test Item SODIUM (test code = NA) 136 mmol/L 137-145 L POTASSIUM (test code = K) 3.1 mmol/L 3.4-5.0 L CHLORIDE (test code = CL) 100 mmol/L 98-107 N CARBON DIOXIDE (test code = CO2) 26 mmol/L 22-30 N GLUCOSE (test code = GLU) 87 mg/dL 74-106 N BLOOD UREA NITROGEN (test code = BUN) 20 mg/dL 7-17 H GLOMERULAR FILTRATION RATE (test code = GFR) 141 >60 The estimated glomerular filtration rate is computed usingpatient race, age (>18), sex, and serum creatinine. If anyof the needed data elements are missing the Laboratory cannot compute an estimation of the glomerular filtration rate. CREATININE (test code = CREAT) 0.5 mg/dL 0.5-1.0 N TOTAL PROTEIN (test code = PROT) 7.9 g/dL 6.3-8.2 N ALBUMIN (test code = ALB) 4.3 g/dL 3.5-5.0 N CALCIUM (test code = CA) 9.1 mg/dL 8.4-10.2 N BILIRUBIN TOTAL (test code = BILT) 0.4 mg/dL 0.2-1.3 N "A positive bias may occur for patients taking Eltrombopag(a bone marrow stimulant used to treat thrombocytopenia andaplastic anemia)." BILIRUBIN CONJUGATED (test code = BILCON) 0 mg/dL 0-0.3 N "A positive bias may occur for patients taking Eltrombopag(a bone marrow stimulant used to treat thrombocytopenia andaplastic anemia)." CONJUGATED BILIRUBIN IS THE REPLACEMENT ASSAY FOR DIRECTBILIRUBIN. BILIRUBIN UNCONJUGATED (test code = BILUNC) 0.3 mg/dL 0-1.1 N SGOT/AST (test code = AST) 94 U/L 15-46 H SGPT/ALT (test code = ALT) 33 U/L 0-34 N ALKALINE PHOSPHATASE (test code = ALKP) 100 U/L 38-126 N [id number] 00:07:00* Test Item Value Reference Range Interpretation Comments LIPASE (test code = LIP) 71 U/L 23-300 N COMPREHENSIVE METABOLIC [id number] 23:57:00* Test Item Value Reference Range Interpretation Comments SODIUM (test code = NA) 136 mmol/L 137-145 L POTASSIUM (test code = K) 3.1 mmol/L 3.4-5.0 L CHLORIDE (test code = CL) 100 mmol/L 98-107 N CARBON DIOXIDE (test code = CO2) 26 mmol/L 22-30 N GLUCOSE (test code = GLU) 87 mg/dL 74-106 N BLOOD UREA NITROGEN (test code = BUN) 20 mg/dL 7-17 H GLOMERULAR FILTRATION RATE (test code = GFR) 141 >60 The estimated glomerular filtration rate is computed usingpatient race, age (>18), sex, and serum creatinine. If anyof the needed data elements are missing the Laboratory cannot compute an estimation of the glomerular filtration rate. CREATININE (test code = CREAT) 0.5 mg/dL 0.5-1.0 N TOTAL PROTEIN (test code = PROT) 7.9 g/dL 6.3-8.2 N ALBUMIN (test code = ALB) 4.3 g/dL 3.5-5.0 N CALCIUM (test code = CA) 9.1 mg/dL 8.4-10.2 N BILIRUBIN TOTAL (test code = BILT) 0.4 mg/dL 0.2-1.3 N "A positive bias may occur for patients taking Eltrombopag(a bone marrow stimulant used to treat thrombocytopenia andaplastic anemia)." BILIRUBIN CONJUGATED (test code = BILCON) 0 mg/dL 0-0.3 N "A positive bias may occur for patients taking Eltrombopag(a bone marrow stimulant used to treat thrombocytopenia andaplastic anemia)." CONJUGATED BILIRUBIN IS THE REPLACEMENT ASSAY FOR DIRECTBILIRUBIN. BILIRUBIN UNCONJUGATED (test code = BILUNC) 0.3 mg/dL 0-1.1 N SGOT/AST (test code = AST) 94 U/L 15-46 H SGPT/ALT (test code = ALT) U/L 0-34 ALKALINE PHOSPHATASE (test code = ALKP) 100 U/L 38-126 N [id number] 23:57:00* Test Item Value Reference Range Interpretation Comments LIPASE (test code = LIP) U/L 23-300 URINALYSIS [id number] 23:52:00* Test Item Value Reference Range Interpretation Comments UA COLOR (test code = COLU) Yellow Yellow UA APPEARANCE (test code = APPU) Slightly-Cloudy Clear UA GLUCOSE DIPSTICK (test code = DGLUU) Negative Negative UA BILIRUBIN DIPSTICK (test code = BILU) Negative Negative UA KETONE DIPSTICK (test code = KETU) Trace mg/dL Negative A UA SPECIFIC GRAVITY (test code = SGU) 1.021 <1.030 UA BLOOD DIPSTICK (test code = RUFUS) 1+ Negative A UA PH DIPSTICK (test code = DIXIE) 6.0 5.0-8.0 UA PROTEIN DIPSTICK (test code = PROU) NEGATIVE mg/dL Negative UA UROBILINOGEN DIPSTICK (test code = URO) Negative mg/dL Negative UA NITRITE DIPSTICK (test code = LORENA) Negative Negative UA LEUKOCYTE ESTERASE DIPSTICK (test code = LEUU) 3+ Nega tive A UA WBC (test code = WBCU) 51-100 /HPF <4-5 A UA RBC (test code = RBCU) 6-10 /HPF <4-5 A UA BACTERIA (test code = BACU) 1+ /HPF None-Rare A UA SQUAMOUS CELLS (test code = SQU) 0-5 (RARE) /HPF 0-5 (RARE) UA MUCUS (test code = MUCU) 3+ /LPF <Rare A CBC W/AUTO [id number] 23:52:00* Test Item Value Reference Range Interpretation Comments WHITE BLOOD CELL (test code = WBC) 6.9 x10 3/uL 5.0-12.0 N RED BLOOD CELL (test code = RBC) 4.43 x10 6/uL 4.20-5.40 N HEMOGLOBIN (test code = HGB) 13.1 g/dL 12.0-16.0 N HEMATOCRIT (test code = HCT) 40.4 % 36.0-46.0 N MEAN CELL VOLUME (test code = MCV) 91 fL 81-99 N MEAN CELL HGB (test code = MCH) 29.6 pg 27-31 N MEAN CELL HGB CONCENTRATION (test code = MCHC) 32.4 g/dL 33-37 L RED CELL DISTRIBUTION WIDTH (test code = RDW) 13.6 % 11.5-15. 5 N PLATELET COUNT (test code = PLT) 350 x10 3/uL 130-400 N MEAN PLATELET VOLUME (test code = MPV) 9.8 fL 9.4-16.4 N NEUTROPHIL % (test code = NT%) 58.9 % 43-65 N IMMATURE GRANULOCYTE % (test code = IG%) 0.3 % 0.0-2.0 N LYMPHOCYTE % (test code = LY%) 29.8 % 20.5-45.5 N MONOCYTE % (test code = MO%) 6.7 % 5.5-11.7 N EOSINOPHIL % (test code = EO%) 3.3 % 0.9-2.9 H BASOPHIL % (test code = BA%) 1.0 % 0.2-1.0 N NUCLEATED RBC % (test code = NRBC%) 0.0 % 0-1.0 N NEUTROPHIL # (test code = NT#) 4.06 x10 3/uL 2.2-4.8 N IMMATURE GRANULOCYTE # (test code = IG#) 0.02 x10 3/uL 0-0.03 N LYMPHOCYTE # (test code = LY#) 2.05 x10 3/uL 1.3-2.9 N MONOCYTE # (test code = MO#) 0.46 x10 3/uL 0.3-0.8 N EOSINOPHIL # (test code = EO#) 0.23 x10 3/uL 0.0-0.2 H BASOPHIL # (test code = BA#) 0.07 x10 3/uL 0.0-0.[address] CHEST [id number] 02:07:00 [place] [address] Patient Name: BIGG HERNANDEZ MR #: [id number] : 1975 Age/Sex: 44/F Req #: [id number] Adm Physician: Ordered by: MICHAEL OVERTON DO Report #: [id number] Location: ER Room/Bed: Procedure: CT/CT CHEST W Exam Date: 02/20/20 Exam Time: 129 REPORT STATUS: Signed EXAM: CT Chest WITH contras t- Pulmonary Embolism Protocol INDICATION: Elevated D dimer. COMPARIS ON: Chest radiograph 02-20-2020. TECHNIQUE: Chest was scanned utilizing a multidetector helical scanner from the lung apex through the level of the diap hragm after administration of IV contrast. Thin section reconstructions were o btained with special concentration on the pulmonary arteries. Coronal and sagi ttal reformations were obtained. Pulmonary embolism protocol was performed. IV CONTRAST: 100 cc of Isovue 370 RADIATION DOSE: Total DLP: 428 mGy*cm Dose modulation, iterative reconstruction, and/ or weight based adjustment of the mA/kV was utilized to reduce the radiation d ose to as low as reasonably achievable. COMPLICATIONS: None FINDINGS: LINES/ TUBES: None. PULMONARY ARTERIES: No filling defec t is identified within the pulmonary arteries to the segmental level. The subs egmental pulmonary arteries are not well opacified. Main pulmonary artery donny ures 2.1 cm in diameter. LUNGS AND AIRWAYS: The central airways are patent. No evidence of pneumonia or pulmonary edema. Minimal dependent atelectasis. B iapical pleural-parenchymal opacity, compatible with sequela of remote granulo matous disease. There is a 4 mm solid nodule in the lingula on series 3, image 75. There is a 6 mm subpleural nodular opacity in the right upper lobe on ser ies 3, image 18. PLEURA: The pleural spaces are clear. HEART AND MEDIA STINUM: The thyroid gland is normal. No mediastinal, hilar or axillary lympha denopathy. The heart is normal in size.. There is no pericardial effusion. . UPPER ABDOMEN: Limited contrast-enhanced views of the upper abdomen. D iffuse hepatic steatosis. BONES: The visualized bony thorax is within no rmal limits. SOFT TISSUES: Unremarkable. IMPRESSION: No evidence of pulmonary embolism to the level of the segmental pulmonary arteries. Latia pical pleural-parenchymal opacity, compatible with remote granulomatous diseas e. A 6 mm subpleural nodular opacity in the right upper lobe likely reflects s equela of remote granulomatous disease. A follow-up chest CT is suggested in 6 -12 months. Signed by: Dr. Ramez García MD on 02/20/2020 2:20 AM Dicta leni By: RAMEZ GARCÍA MD 9 Transcribed By: RASHMI on 02/20/20219 COPY TO: MICHAEL OVERTON DO CHEST 2 [id number] 00:43:00 [place] [address] Patient Name: BIGG HERNANDEZ MR #: [id number] : 1975 Age/Sex: 44/F Req #: [id number] Adm Physician: Ordered by: MICHAEL OVERTON DO Report #: [id number] Location: ER Room/Bed: Procedure: [id number] DX/CHEST 2 VIEW S Exam Date: 02/20/20 Exam Time: 9 REPORT STATUS: Signed EXAMINATION: CHEST 2 EWS INDICATION: Heart palpitations. COMPARISON: None FI NDINGS: TUBES and LINES: None. LUNGS: Lungs are well inflated. There i s no evidence of pneumonia or pulmonary edema. Mild biapical pleural-parenchym al opacity, compatible with remote granulomatous disease. PLEURA: No pl eural effusion or pneumothorax. HEART AND MEDIASTINUM: The cardiomediasti nal silhouette is unremarkable. BONES AND SOFT TISSUES: No acute osseo us lesion. Soft tissues are unremarkable. UPPER ABDOMEN: No free air und er the diaphragm. IMPRESSION: No acute thoracic abnormality. Si gned by: Dr. Ramez García MD on 02/20/2020 12:45 AM Dictated By: RAMEZ GARCÍA MD Transcribed By: Alba TREADWELL on 02/20/2044 COPY TO: MICHAEL OVERTON DO Blood leukocytes automated count (number/volume)2020-02-19 23:21:00* Test Item Value Reference Range Interpretation Comments White Blood Count (test code = 6690-2) 6.47 4.8-10.8 [facility] erythrocytes automated count (number/volume)2020-02-19 23:21:00* Test Item Value Reference Range Interpretation Comments Red Blood Count (test code = 789-8) 4.41 3.6-5.1 [facility] hemoglobin measurement (moles/volume)2020-02-19 23:21:00* Test Item Value Reference Range Interpretation Comments Hemoglobin (test code = 97335-8) 13.4 12.0-16.0 [facility] blood hematocrit (volume fraction)2020-02-19 23:21:00* Test Item Value Reference Range Interpretation Comments Hematocrit (test code = 4544-3) 41.0 34.2-44.1 [facility] erythrocyte mean corpuscular [id number] 23:21:00* Test Item Value Reference Range Interpretation Comments Mean Corpuscular Volume (test code = 787-2) 93.0 81-99 [facility] erythrocyte mean corpuscular hemoglobin (mass per erythrocyte)2020-02-19 23:21:00* Test Item Value Reference Range Interpretation Comments Mean Corpuscular Hemoglobin (test code = 785-6) 30.4 28-32 [facility] erythrocyte mean corpuscular hemoglobin concentration measurement (mass/volume)2020-02-19 23:21:00* Test Item Value Reference Range Interpretation Comments Mean Corpuscular Hemoglobin Concent (test code = 786-4) 32.7 31-35 [facility] South[facility]DW [id number] 23:21:00* Test Item Value Reference Range Interpretation Comments Red Cell Distribution Width (test code = 03169-7) 12.8 11.7 -14.4 [facility] blood platelet count (count/volume)2020-02-19 23:21:00* Test Item Value Reference Range Interpretation Comments Platelet Count (test code = 777-3) 306 140-360 [facility] blood segmented neutrophil count as percentage of total [id number] 23:21:00* Test Item Value Reference Range Interpretation Comments Neutrophils (%) (Auto) (test code = 70651-9) 62.7 38.7-80.0 [facility] blood lymphocyte count as percentage ot total [id number] 23:21:00* Test Item Value Reference Range Interpretation Comments Lymphocytes (%) (Auto) (test code = 736-9) 25.7 18.0-39.1 [facility] blood monocyte count as percentage of total [id number] 23:21:00* Test Item Value Reference Range Interpretation Comments Monocytes (%) (Auto) (test code = 5905-5) 6.5 4.4-11.3 [facility] eosinophil count as percentage of total [id number] 23:21:00* Test Item Value Reference Range Interpretation Comments Eosinophils (%) (Auto) (test code = 713-8) 3.2 0.0-6.0 [facility] blood basophil count as percentage of total [id number] 23:21:00* Test Item Value Reference Range Interpretation Comments Basophils (%) (Auto) (test code = 706-2) 1.1 0.0-1.0 [facility] SouthFluoroscopic procedure less than one hour [id number] 23:21:00* Test Item Value Reference Range Interpretation Comments IM GRANULOCYTES % (test code = IM GRANULOCYTES %) 0.8 0.0- 1.0 [facility] blood neutrophil count 2020-02-19 23:21:00* Test Item Value Reference Range Interpretation Comments Neutrophils # (Auto) (test code = 751-8) 4.1 2.1-6.9 [facility] lymphocytes count (number/volume) 2020-02-19 23:21:00* Test Item Value Reference Range Interpretation Comments Lymphocytes # (Auto) (test code = 18494-1) 1.7 1.0-3.2 [facility] monocytes automated count (number/volume)2020-02-19 23:21:00* Test Item Value Reference Range Interpretation Comments Monocytes # (Auto) (test code = 742-7) 0.4 0.2-0.8 [facility] blood eosinophil count 2020-02-19 23:21:00* Test Item Value Reference Range Interpretation Comments Eosinophils # (Auto) (test code = 711-2) 0.2 0.0-0.4 [facility] blood basophil count (count/volume)2020-02-19 23:21:00* Test Item Value Reference Range Interpretation Comments Basophils # (Auto) (test code = 704-7) 0.1 0.0-0.1 [facility] SouthFluoroscopic procedure less than one hour [id number] 23:21:00* Test Item Value Reference Range Interpretation Comments Absolute Immature Granulocyte (auto (mirna t code = Absolute Immature Granulocyte (auto) 0.05 0-0.1 [facility] SouthFibrin D-dimer DDU measurement in platelet poor plasma (mass/volume)2020-02-19 23:21:00* Test Item Value Reference Range Interpretation Comments D-Dimer Quantitative (PE/DVT) (test code = 96437-0) 0.50 0. 00-0.45 As with all in vitro diagnostic tests, the test results should be interpreted by the physician in conjunction with clinical findings and other test results.Test results are reported in NEW D-dimer units(ug/mLFEU).[facility] South[facility] color [id number] 23:21:00* Test Item Value Reference Range Interpretation Comments Urine Color (test code = 5778-6) YELLOW YELLOW [facility] SouthUrine [id number] 23:21:00* Test Item Value Reference Range Interpretation Comments Urine Clarity (test code = 09306-6) CLEAR CLEAR [facility]ball[facility] gravity of Urine by Test strip 2020-02-19 23:21:00* Test Item Value Reference Range Interpretation Comments Urine Specific [place] (test code = 5811-5) 1.020 1.010-1.02 5 [facility] pH measurement by automated test [id number] 23:21:00* Test Item Value Reference Range Interpretation Comments Urine pH (test code = 47447-8) 7.5 5-7 [facility] South[facility] leukocyte esterase detection by [id number] 23:21:00* Test Item Value Reference Range Interpretation Comments Urine Leukocyte Esterase (test code = 5799-2) NEGATIVE NEGATIVE [facility] South[facility] nitrite [id number] 23:21:00* Test Item Value Reference Range Interpretation Comments Urine Nitrite (test code = 61233-4) NEGATIVE NEGATIVE [facility] protein measurement by test strip (mass/volume)2020-02-19 23:21:00* Test Item Value Reference Range Interpretation Comments Urine Protein (test code = 5804-0) NEGATIVE NEGATIVE [facility] South[facility] glucose [id number] 23:21:00* Test Item Value Reference Range Interpretation Comments Urine Glucose (UA) (test code = 2349-9) NEGATIVE NEGATIVE [facility] South[facility] ketones detection by automated test [id number] 23:21:00* Test Item Value Reference Range Interpretation Comments Urine Ketones (test code = 84283-2) NEGATIVE NEGATIVE [facility] South[facility] opiates screening [id number] 23:21:00* Test Item Value Reference Range Interpretation Comments Urine Opiates Screen (test code = 72506-0) NEGATIVE NEGATIVE ALL TESTS PERFORMED MANUALLY ON [employer] TOX/SEE TESTCHRISTUS [facility] – SouthBarbiturates screen, [id number] 23:21:00* Test Item Value Reference Range Interpretation Comments Urine Barbiturates Screen (test code = 436013920) NEGATIVE NEGA TIVE [facility] South[facility] phencyclidine detection by screening [id number] 23:21:00* Test Item Value Reference Range Interpretation Comments Urine Phencyclidine Screen (test code = 97537-4) NEGATIVE NEGAT SHANTELL [facility] South[facility] amphetamines detection by screen method > 1000 [id number] 23:21:00* Test Item Value Reference Range Interpretation Comments Urine Amphetamines Screen (test code = 19368-1) NEGATIVE NEGATI VE [facility] SouthFluoroscopic procedure less than one hour [id number] 23:21:00* Test Item Value Reference Range Interpretation Comments Urine Methamphetamines Screen (test code = Urine Metha mphetamines Screen) POSITIVE NEGATIVE This test provides only a screen. Positive results should be repeated by a confi rmatory test.[facility] South[facility]rine benzodiazepines detection by screening [id number] 23:21:00* Test Item Value Reference Range Interpretation Comments Urine Benzodiazepines Screen (test code = 05578-7) NEGATIVE NEG ATIVE [facility] South[facility] cocaine measurement (mass/volume) 2020-02-19 23:21:00* Test Item Value Reference Range Interpretation Comments Urine Cocaine Screen (test code = 3398-5) NEGATIVE NEGATIVE [facility] cannabinoids detection by screening [id number] 23:21:00* Test Item Value Reference Range Interpretation Comments Urine Cannabinoids Screen (test code = 49094-0) NEGATIVE NEGATI VE THESE RESULTS ARE FOR MEDICAL TREATMENT ONLYTHIS REPORT CONTAINS UNCONFIR MED SCREENING RESULTS*POSITIVE RESULTS WILL BE CONFIRMED BY REFERENCE LAB UPON R EQUEST CUT-OFFDRUG CLASS CONCENTRATION ng/mLAmphetamines 1000Methamphetamines 1000Cocaine 300Opiate 300Phencyc lidine 25Cannabinoid 50Barbiturates 300Benzodiazepine 300Methadone 300[facility] [id number] 23:21:00* Test Item Value Reference Range Interpretation Comments Urine Methadone Screen (test code = 83658-9) NEGATIVE NEGATIVE THESE RESULTS ARE FOR MEDICAL TREATMENT ONLYTHIS REPORT CONTAINS UNCONFIR MED SCREENING RESULTS*POSITIVE RESULTS WILL BE CONFIRMED BY REFERENCE LAB UPON R EQUEST CUT-OFFDRUG CLASS CONCENTRATION ng/mLAmphetamines 1000Methamphetamines 1000Cocaine Metabolite 300Opiate 300Phencyc lidine 25Cannabinoid 50Barbiturates 300Benzodiazepine 300Methadone 300[facility]enUrine urobilinogen measurement by test strip (mass/volume)2020-02-19 23:21:00* Test Item Value Reference Range Interpretation Comments Urine Urobilinogen (test code = 50781-7) 0.2 0.2-1 [facility] total bilirubin measurement (mass/volume)2020-02-19 23:21:00* Test Item Value Reference Range Interpretation Comments Urine Bilirubin (test code = 1978-6) NEGATIVE NEGATIVE [facility] erythrocytes [id number] 23:21:00* Test Item Value Reference Range Interpretation Comments Urine Blood (test code = 52786-0) 1+ NEGATIVE [facility]Automated urine sediment leukocyte count by microscopy (number/high power field)2020-02-19 23:21:00* Test Item Value Reference Range Interpretation Comments Urine WBC (test code = 5821-4) 6-10 0-5 [facility] SouthErythrocytes detection in urine sediment by light suuotcwagb6193-02-00 23:21:00* Test Item Value Reference Range Interpretation Comments Urine RBC (test code = 07526-5) 0-5 0-5 [facility]Bacteria detection in urine sediment by light fuyollxalo0705-25-46 23:21:00* Test Item Value Reference Range Interpretation Comments Urine Bacteria (test code = 49494-9) FEW NONE [facility] SouthEpithelial cells detection in urine sediment by light ltlgeykdvd5647-56-53 23:21:00* Test Item Value Reference Range Interpretation Comments Urine Epithelial Cells (test code = 79392-4) FEW NONE [facility] human chorionic gonadotropin (hCG) jivwahmky1138-30-36 23:21:00* Test Item Value Reference Range Interpretation Comments Urine Test (test code = 2106-3) NEGATIVE NEGATIVE [facility] sodium measurement (moles/volume)2020-02-19 23:21:00* Test Item Value Reference Range Interpretation Comments Sodium Level (test code = 2951-2) 138 136-145 [facility]ball[facility] or plasma potassium measurement (moles/volume)2020-02-19 23:21:00* Test Item Value Reference Range Interpretation Comments Potassium Level (test code = 2823-3) 3.5 3.5-5.1 [facility] or plasma chloride measurement (moles/volume)2020-02-19 23:21:00* Test Item Value Reference Range Interpretation Comments Chloride Level (test code = 2075-0) 103 98-107 [facility] or plasma carbon dioxide, total measurement (moles/volume)2020-02-19 23:21:00* Test Item Value Reference Range Interpretation Comments Carbon Dioxide Level (test code = 2028-9) 24 22-29 [facility]ball[facility] or plasma anion [id number] 23:21:00* Test Item Value Reference Range Interpretation Comments Anion Gap (test code = 92340-6) 14.5 8-16 [facility] or plasma urea nitrogen measurement (mass/volume)2020-02-19 23:21:00* Test Item Value Reference Range Interpretation Comments Blood Urea Nitrogen (test code = 3094-0) 7 7-26 [facility] or plasma creatinine measurement (mass/volume)2020-02-19 23:21:00* Test Item Value Reference Range Interpretation Comments Creatinine (test code = 2160-0) 0.68 0.57-1.11 [facility] or plasma urea nitrogen/creatinine mass [id number] 23:21:00* Test Item Value Reference Range Interpretation Comments BUN/Creatinine Ratio (test code = 3097-3) 10 6-25 [facility] SouthEstimated glomerular filtration rate (GFR) yuwbxikjcotuh6509-66-87 23:21:00* Test Item Value Reference Range Interpretation Comments Estimat Glomerular Filtration Rate (test code = 287386260) > 60 >60 Ranges were taken from the National Kidney Disease Education Program and the [facility] literature.Reference ranges:60 or greater: Mqvaka09-99 ( for 3 consecutive months): Chronic kidney disease 15 or less: Kidney failureCHRISTUS [facility] – SouthGlucose bylewlbbxgn6529-53-16 23:21:00* Test Item Value Reference Range Interpretation Comments Glucose Level (test code = XKC5703) 89 74-118 [facility] or plasma calcium measurement (mass/volume)2020-02-19 23:21:00* Test Item Value Reference Range Interpretation Comments Calcium Level (test code = 53922-8) 8.9 8.4-10.2 [facility] or plasma total bilirubin measurement (mass/volume)2020-02-19 23:21:00* Test Item Value Reference Range Interpretation Comments Total Bilirubin (test code = 1975-2) 0.3 0.2-1.2 [facility] SouthFluoroscopic procedure less than one hour dwlasvwu1351-54-69 23:21:00* Test Item Value Reference Range Interpretation Comments Aspartate Amino Transf (AST/SGOT) (test code = Aspartate Amino Transf (AST/SGOT)) 101 5-34 [facility] or plasma alanine aminotransferase measurement (enzymatic activity/volume)2020-02-19 23:21:00* Test Item Value Reference Range Interpretation Comments Alanine Aminotransferase (ALT/SGPT) (test code = 1742-6) 107 0-55 [facility] or plasma protein measurement (mass/volume)2020-02-19 23:21:00* Test Item Value Reference Range Interpretation Comments Total Protein (test code = 2885-2) 8.1 6.5-8.1 [facility] or plasma albumin measurement (mass/volume)2020-02-19 23:21:00* Test Item Value Reference Range Interpretation Comments Albumin (test code = 1751-7) 3.8 3.5-5.0 [facility]asma globulin measurement (mass/volume) 2020-02-19 23:21:00* Test Item Value Reference Range Interpretation Comments Globulin (test code = 99494-8) 4.3 2.3-3.5 [facility] or plasma albumin/globulin mass bjdgm2227-64-32 23:21:00* Test Item Value Reference Range Interpretation Comments Albumin/Globulin Ratio (test code = 1759-0) 0.9 0.8-2.0 [facility] or plasma alkaline phosphatase measurement (enzymatic activity/volume)2020-02-19 23:21:00* Test Item Value Reference Range Interpretation Comments Alkaline Phosphatase (test code = 6768-6) 107 40-150 [facility] SouthBNP Qpj-nKap2260-65-20 23:21:00* Test Item Value Reference Range Interpretation Comments B-Type Natriuretic Peptide (test code = 85399-8) 42.5 0-100 [facility] or plasma creatine kinase measurement (enzymatic activity/volume)2020-02-19 23:21:00* Test Item Value Reference Range Interpretation Comments Creatine Kinase (test code = 2157-6) 95 29-168 [facility] or plasma creatine kinase MB measurement (mass/volume)2020-02-19 23:21:00* Test Item Value Reference Range Interpretation Comments Creatine Kinase MB (test code = 00772-1) 1.20 0-5.0 [facility] SouthTroponin I measurement by highly sensitive enzyme bsulxvcmtsv4067-44-38 23:21:00* Test Item Value Reference Range Interpretation Comments Troponin I (test code = 55681-0) < 0.001 0-0.300 [facility]HC VPECB1169-97-02 01:56:00* Test Item Value Reference Range Interpretation [...] diagnose any conditionunrelated to . - DUP AB/PEL/SC/AOO3709-66-61 01:55:00 Leslie: St: REG Name: BIGG JACINTO [facility] : [birth year] Age/S: 43/F [address] Unit #: [id number] Loc: [place] [address] Phys: Belinda Boswell NP Acct: [id number] Dis Date: Status: REG ER PHONE #: [phone] Exam Date: 04/01/2019 0133 FAX #: [phone] Reason: SEE REASON ON US PREG 1ST TRMTR EXAMS: CPT CODE: [id number] DUP AB/PEL/SC/LTD 66871 DICTATION LOCATION: 8 HISTORY: Female, 43 years of age with pelvic pain and bleeding duri ng 1st trimester . 8 weeks 5 days [...] Melara MD CC: Technologist: Tana Puga Date/Time/By: 9 (0157) : By: Kavon PAGE 1 Signed Report Leslie: St: REG Name: DAVIDBIGG [facility] : 1975 Age/S: 43/F [address] Unit #: [id number] Loc: [place] [address] Phys: Belinda Boswell cct: [id number] Dis Date: Status: REG ER PHONE #: [phone] Exam Date: 04/01/2019 0133 FAX #: [phone] Reason: SEE REASON ON US PREG 1ST TRMTR EXAMS: CPT CODE: 0 [id number] DUP AB/PEL/SC/LTD 83350 < Continued> Orig Print D/T: S: 04/01/2019 (9800) PAGE 2 Signed Report - US PREG CT [id number] 01:55:00 Leslie: St: REG Name: Belinda KERNBIGG ACOSTA [facility] : [birth year] Age/S: 43/F [address] Unit #: [id number] Loc: [place] [address] Phys: Belinda Boswell OCTAVIA Acct: [id number] Dis Date: Status: REG ER PHONE #: [phone] Exam Date: 04/01/2019 013 FAX #: [phone] Reason: SEE REASON ON US PREG 1ST TRMTR EXAMS: CPT CODE: [id number] US PREG UT TRANSVAGINA L 90948 DICTATION LOCATION: H48 HISTORY: Female, 43 years of age with pelvic pain and bleeding duri ng 1st trimester . 8 weeks 5 days [...] Naomi Melara MD CC: Technologist: Tana Puga; S#:[id number] IC5-9-D Trnscrd Date/Time/By: 9 (0155) : By: Kavon PAGE 1 Signed Report Leslie: St: REG Name: BIGG HERNANDEZ [facility] : 1975 Age/S: 43/F [address] Unit #: [id number] Loc: [place] [address] Phys: Belinda Boswell cct: [id number] Dis Date: Status: REG ER PHONE #: [phone] Exam Date: 04/01/2019132 FAX #: [phone] Reason: SEE REASON ON US PREG 1ST TRMTR EXAMS: CPT CODE: [id number] US PREG UT TRANSVAGINAL 05309 < Continued> Orig Print D/T: S: 04/01/2019 (0158) PAGE 2 Signed Report - US PREG 1ST [id number] 01:55:00 Leslie: St: REG Name: BIGG JACINTO [facility] : [birth year] Age/S: 43/F [address] Unit #: [id number] Loc: [place] [address] Phys: Belinda Boswell NP Acct: [id number] Dis Date: Status: REG ER PHONE #: [phone] Exam Date: 04/01/2019132 FAX #: [phone] Reason: PELVIC PAIN EXAMS: CPT CODE: [id number] US PREG 1ST TRIMTR 36930 DICTATION LOCATION: H48 HISTORY: Female, 43 years of age with pelvic pain and bleeding duri ng 1st trimester . 8 weeks 5 days [...] Melara MD CC: Technologist: Tana Puga Date/Time/By: 9 (0150) : By: RoyceCLW PAGE 1 Signed Report Leslie: St: REG Name: BIGG HERNANDEZ [facility] : 1975 Age/S: 43/F [address] Unit #: [id number] Loc: [place] [address] Phys: Belinda Boswell cct: [id number] Dis Date: Status: REG ER PHONE #: [phone] Exam Date: 04/01/2019132 FAX #: [phone] Reason: PELVIC PAIN EXAMS: CPT CODE: 0 [id number] US PREG 1ST TRIMTR 20038 < Continued> Orig Print D/T: S: 04/01/2019 (5597) PAGE 2 Signed Report BASIC METABOLIC [id number] 01:44:00* Test Item Value Reference Range Interpretation [...] CA) 8.2 mg/dL 8.4-10.2 L LIVER FUNCTION [id number] 01:44:00* Test Item Value Reference Range Interpretation [...] ALKP) 108 U/L 38-126 N CBC W/AUTO [id number] 01:06:00* Test Item Value Reference Range Interpretation [...]
== END 2020-07-15 17:40 | disposition home or self-care (01) ==
LOC: ER 17:30
DX: L03.116 Cellulitis of left lower limb (principal)
CPT/HCPCS: 99282

== ENCOUNTER 2021-04-12 11:21 | Emergency (ER) | payer SELFPAY ==
[~2021-04-12] VITALS: Ht 162.6 cm; Wt 58.5 kg
[2021-04-12] MEDS ORDERED: DEXAMETHASONE SOD PHOS 10 MG/1 ML VIAL IV ONE (12:15)
[2021-04-12] MEDS ORDERED: DIPHENHYDRAMINE HCL INJ 50 MG/ML VIAL IV ONE (12:15)
[2021-04-12 12:39] LABS: BASOPHILS # (AUTO) 0.1 (0.0-0.1); BASOPHILS % 0.8 % (0.0-1.0); EOSINOPHILS # (AUTO) 0.4 (0.0-0.4); EOSINOPHILS % 4.5 % (0.0-6.0); HEMATOCRIT 38.7 % (34.2-44.1); HEMOGLOBIN 12.8 g/dL (12.0-16.0); LYMPHOCYTES # (AUTO) 2.6 (1.0-3.2); MEAN CORPUSCULAR HEMOGLOBIN 29.6 pg (28-32); MEAN CORPUSCULAR HGB CONC 33.1 g/dL (31-35); MEAN CORPUSCULAR VOLUME 89.4 fL (81-99); MONOCYTES # (AUTO) 0.8 (0.2-0.8); MONOCYTES % 9.2 % (4.4-11.3); NEUTROPHILS # (AUTO) 4.4 (2.1-6.9); NEUTROPHILS % 52.5 % (38.7-80.0); PLATELET COUNT 285 x10e3/uL (140-360); RED BLOOD COUNT 4.33 x10e6/uL (3.6-5.1); RED CELL DISTRIBUTION WIDTH 15.1 % (11.7-14.4)
[2021-04-12 13:06] LABS: ALBUMIN 3.7 g/dL (3.5-5.0); ALBUMIN/GLOBULIN RATIO 0.9 (0.8-2.0); ANION GAP 13.1 mmol/L (8-16); CALCIUM 8.6 mg/dL (8.4-10.2); CREATININE, SERUM 0.66 mg/dL (0.57-1.11); POTASSIUM 4.1 mmol/L (3.5-5.1)
[2021-04-12 13:34] VITALS: BP 146/84
== END 2021-04-12 13:45 | disposition home or self-care (01) ==
LOC: ER 12:09
DX: L03.114 Cellulitis of left upper limb (principal); T63.441A Toxic effect of venom of bees, accidental (unintentional), initial encounter; F17.210 Nicotine dependence, cigarettes, uncomplicated
CPT/HCPCS: 36415; 80053; 85025; 87040; 99283; J1100; J1200

== ENCOUNTER 2025-02-08 14:14 | Emergency (ER) | payer SELFPAY ==
[~2025-02-08] VITALS: Ht 162.6 cm; Wt 77.1 kg
[~2025-02-08 14:14] MED LIST changes: +AMOX TR-K CLV1 EAC2 PO; +AZITHROMYCIN250 MG PO; +PREDNISONE20 MG PO; +VENTOLIN HFA18 GM INH
[2025-02-08 14:25] VITALS: TEMP 98.6
[2025-02-08 14:57] LABS: BASOPHILS # (AUTO) 0.1 (0.0-0.1); BASOPHILS % 1.3 % (0.0-1.0); EOSINOPHILS # (AUTO) 0.1 (0.0-0.4); EOSINOPHILS % 0.7 % (0.0-6.0); HEMATOCRIT 32.6 % (34.2-44.1); HEMOGLOBIN 10.5 g/dL (12.0-16.0); LYMPHOCYTES # (AUTO) 1.8 (1.0-3.2); LYMPHOCYTES % 23.3 % (18.0-39.1); MEAN CORPUSCULAR HEMOGLOBIN 27.2 pg (28-32); MEAN CORPUSCULAR HGB CONC 32.2 g/dL (31-35); MEAN CORPUSCULAR VOLUME 84.5 fL (81-99); MONOCYTES # (AUTO) 0.5 (0.2-0.8); MONOCYTES % 6.3 % (4.4-11.3); NEUTROPHILS # (AUTO) 5.1 (2.1-6.9); NEUTROPHILS % 67.6 % (38.7-80.0); PLATELET COUNT 242 x10e3/uL (140-360); RED BLOOD COUNT 3.86 x10e6/uL (3.6-5.1); RED CELL DISTRIBUTION WIDTH 18.7 % (11.7-14.4); WHITE BLOOD COUNT 7.52 x10e3/uL (4.8-10.8)
[2025-02-08 15:19] LABS: ALANINE AMINOTRANSFERASE 107 IU/L (0-55); ALBUMIN 4.2 g/dL (3.5-5.0); ALBUMIN/GLOBULIN RATIO 0.6 (0.8-2.0); ALKALINE PHOSPHATASE 163 IU/L (40-150); ANION GAP 25.8 mmol/L (8-16); BILIRUBIN,TOTAL 1.7 mg/dL (0.2-1.2); BLOOD UREA NITROGEN < 5 mg/dL (7-26); CARBON DIOXIDE 10 mmol/L (22-29); CHLORIDE 97 mmol/L (98-107); CREATININE, SERUM 0.89 mg/dL (0.57-1.11); EST GLOMERULAR FILTRATION RATE 78 ML/MIN (>=60); GLUCOSE 97 mg/dL (74-118); SODIUM 130 mmol/L (136-145); TOTAL PROTEIN 10.9 g/dL (6.5-8.1)
[2025-02-08 15:22] LABS: BUN/CREATININE RATIO 6 (6-25); POTASSIUM 2.8 mmol/L (3.5-5.1)
[2025-02-08 15:24] LABS: TROPONIN I 0.013 ng/mL (0-0.300)
[2025-02-08] MEDS: POTASSIUM CHLORIDE 20 MEQ TAB CR PO STA (15:46)
[2025-02-08] MEDS: LACTATED RINGER'S 1,000 ML INJ ONE ×2 (15:47→16:51)
[2025-02-08] MEDS: THIAMINE HCL 100 MG TAB PO SCH (15:47)
[2025-02-08] MEDS: ONDANSETRON HCL INJ 2MG/ML 2ML 2 MG/ML VIAL IV STA ×2 (15:47→19:58)
[2025-02-08 16:01] LABS: CLARITY,URINE SL CLOUDY (CLEAR); COLOR,URINE YELLOW (YELLOW); GLUCOSE, URINE NEGATIVE (NEGATIVE); KETONES,URINE >=160 (NEGATIVE); LEUKOCYTE ESTERASE ,URINE NEGATIVE (NEGATIVE); NITRITE,URINE NEGATIVE (NEGATIVE); PH,URINE 5.5 (5 - 7); PROTEIN,URINE DIPSTICK 2+ (NEGATIVE)
[2025-02-08 16:02] LABS: BILIRUBIN,URINE SMALL (NEGATIVE); URINE UROBILINOGEN 1 mg/dL (0.2 - 1)
[2025-02-08 16:24] LABS: BACTERIA,URINE FEW /HPF; EPITHELIAL CELLS,URINE MODERATE /LPF; WBC,URINE (MAN) 0-5 /HPF (0-5)
[2025-02-08 18:10] VITALS: PULSE 110; RESP 8
[2025-02-08 18:44] LABS: CORONAVIRUS COVID-19 AG NEGATIVE (NEGATIVE); INFLUENZA A AG NEGATIVE (NEGATIVE); INFLUENZA B AG NEGATIVE (NEGATIVE)
[2025-02-08 19:13] LABS: ANION GAP 21.3 mmol/L (8-16); BLOOD UREA NITROGEN < 5 mg/dL (7-26); CALCIUM 8.6 mg/dL (8.4-10.2); CARBON DIOXIDE 12 mmol/L (22-29); CHLORIDE 102 mmol/L (98-107); CREATININE, SERUM 0.77 mg/dL (0.57-1.11); EST GLOMERULAR FILTRATION RATE 93 ML/MIN (>=60); GLUCOSE 93 mg/dL (74-118); SODIUM 132 mmol/L (136-145)
[2025-02-08 19:25] LABS: BUN/CREATININE RATIO 6 (6-25); POTASSIUM 3.3 mmol/L (3.5-5.1)
[2025-02-08] MEDS: SODIUM CHLORIDE 0.9% 1000ML 2,000 ML IV STA (19:58)
[2025-02-08] MEDS: DIAZEPAM INJ 5 MG/ML 2 ML IV ONE ×2 (19:58→21:03)
[2025-02-08] MEDS ORDERED: LIBRAX CAPSULE1 EACH PO (22:07)
[2025-02-08] MEDS ORDERED: ONDANSETRON ODT4 MG PO (22:07)
[2025-02-08 22:10] VITALS: BP 129/84; PULSE 84; RESP 18; TEMP 98.6; O2SAT 98
== END 2025-02-08 22:13 | disposition home or self-care (01) ==
LOC: ER 14:23
DX: R07.89 Other chest pain (principal); R19.7 Diarrhea, unspecified; R11.0 Nausea; F10.988 Alcohol use, unspecified with other alcohol-induced disorder; Z11.52 Encounter for screening for COVID-19
CPT/HCPCS: 36415; 71045; 80048; 80053; 80320; 81001; 84484; 85025; 87428; 93005; 99284; J2405; J2470; J3360; J3411; J7030; J7121